=== PATIENT | female | born 1975 | race Caucasian/White ===

== ENCOUNTER → 2018-05-01 | Outpatient (CLI) | payer OTHER ==
[2015-06-08 15:21] VITALS: BP 139/83
[~2018-05-01] MED LIST: CELE400C PO; CHOL100013 PO; CHOL500016 PO; FENT1PAT21 TP; FERR325T14 PO; GABA600T7 PO; HYDR1TAB14 PO; HYDR200T5 PO; HYDR25CA75 PO; IBUP200T58 PO; LISI1TAB5 PO; MAGN400C PO; MELO15TA23 PO; MELO7.5T29 PO; MELO7.5T5 PO; NAPR-514 PO; OXYC10TA PO; OXYC1TAB15 PO; SERT100T PO; TIZA4TAB2 PO; WARF-78 PO; WARF1TAB69 PO; WARF7.5T48 PO; ZOLP5TAB PO
== END | disposition home or self-care (01) ==
LOC: LAB 12:16
PROVIDERS: ATTEND Orthopaedic Surgery Sports Medicine
DX: Z47.89 Encounter for other orthopedic aftercare (principal); Z96.643 Presence of artificial hip joint, bilateral
CPT/HCPCS: 36415; 85651; 86141

== ENCOUNTER → 2018-05-11 | Outpatient (CLI) | payer OTHER ==
[2015-06-08 15:21] VITALS: BP 139/83
[~2018-05-11] MED LIST changes: -MELO7.5T5 PO; +TIZA4TAB PO; -TIZA4TAB2 PO; -WARF1TAB69 PO
[2018-05-11 11:50] LABS: BILIRUBIN,URINE NEGATIVE (NEG); CLARITY,URINE CLEAR; COLOR,URINE YELLOW; NITRITE,URINE NEGATIVE (NEG); PROTEIN,URINE NEGATIVE (NEG-TRACE); UROBILINOGEN,URINE 0.2 mg/dL (0.2 mg/dL)
[2018-05-11 11:51] LABS: BASO % 0 % (0-3); EOS # 0.1 x10^3/uL (0.0-0.7); EOS % 1 % (0-3); HEMATOCRIT 31.3 % (36.0-47.0); HEMOGLOBIN 10.4 g/dL (12.0-15.5); LYMPH # 2.7 x10^3/uL (1.0-4.8); LYMPH % 36 % (24-48); MEAN CORPUSCULAR HEMOGLOBIN 27 pg (25-35); MEAN CORPUSCULAR HGB CONC 33 g/dL (31-37); MEAN CORPUSCULAR VOLUME 83 fL (79-100); MONO # 0.8 x10^3/uL (0.0-1.1); MONO % 11 % (0-9); NEUT # 3.9 x10^3uL (1.8-7.7); NEUT % 52 % (31-73); PLATELET COUNT 414 x10^3/uL (140-400); RED BLOOD COUNT 3.79 x10^6/uL (3.50-5.40); RED CELL DISTRIBUTION WIDTH 14.9 % (11.5-14.5); WHITE BLOOD COUNT 7.6 x10^3/uL (4.0-11.0)
[2018-05-11 12:00] LABS: PROTHROMBIN TIME PATIENT 12.9 SEC (11.7-14.0)
[2018-05-11 12:00] LABS: HYALINE CASTS, URINE MODERATE /HPF; SQUAMOUS EPITHELIAL CELL,UR FEW /LPF
[2018-05-11 12:01] LABS: BACTERIA,URINE FEW /HPF (0-FEW); RBC,URINE 0 /HPF (0-2)
[2018-05-11 12:05] LABS: ALBUMIN 3.3 g/dL (3.4-5.0); CALCIUM 8.7 mg/dL (8.5-10.1); CREATININE 0.7 mg/dL (0.6-1.0); GFR 92.2
--- NOTE | 2018-05-11 12:28 | EKG ---
[facility] [address] [place] [address] Test Date: 2018-05-11 Test Time: 11:51:06 Pat Name: TITA NEW Department: Room: Gender: F Community Leader: GINA Johnson : 1975 Requested By: CHAN KELSEY Order Number: [id number] Reading MD: Julian Voss Measurements Intervals [place] Rate: 81 P: 38 MN: 156 QRS: 9 QRSD: 88 T: 7 QT: 382 QTc: 444 Interpretive Statements SINUS RHYTHM MILD T WAVE INVERSION IN LEAD III Electronically Signed On 05-12-2018 18:33:10 MANAGER SOCIAL WORK by Julian Voss
--- NOTE | 2018-05-11 13:07 | RAD ---
Chest, 2 views, 05/11/2018: HISTORY: Preop evaluation for hip surgery The heart size and pulmonary vascularity are normal. No pulmonary infiltrate is seen. There is no evidence of pleural fluid. There are mild scattered spurs in the spine. IMPRESSION: No acute cardiopulmonary abnormality is detected. Electronically signed by: Soy Blancas MD (05/11/2018 1:02 PM) [facility]
== END | disposition home or self-care (01) ==
LOC: SURGPAT 10:15
PROVIDERS: ATTEND Orthopaedic Surgery Sports Medicine
DX: Z01.818 Encounter for other preprocedural examination (principal)
CPT/HCPCS: 36415; 71046; 80048; 81001; 82040; 85025; 85610; 85651; 85730; 87641; 93005

== ENCOUNTER 2018-05-25 06:16 | Inpatient (IN) | payer OTHER ==
[~2018-05-25] VITALS: Ht 165.1 cm; Wt 111.6 kg
[2018-05-25] VITALS (12 sets, daily range): BP systolic 118–150; BP diastolic 56–85
[~2018-05-25 06:16] MED LIST changes: +HYDROcodone/APAP 7.5/325MG 1 TAB TABLET PO PRN; +MELOXICAM 7.5 MG TABLET PO PRN; +MORPHINE SULFATE 5 MG, KETOROLAC 30MG VIAL 30 MG, ROPIVacaine 0.5% PF 60 ML, EPINEPHrin... INT ART ONE; +TRANEXAMIC ACID 1,000 MG in IV NS 50ML -- 1ST BAG INJ ONE
[2018-05-25] MEDS ORDERED: ONDANSETRON PF 4 MG/2 ML VIAL. IV PRN (07:00)
[2018-05-25] MEDS ORDERED: ceFAZolin 2GM PREMIX 2 GM/50 ML BAG IV ONE (07:00)
[2018-05-25] MEDS ORDERED: IV RINGERS,LACTATED 1000ML 1,000 ML IV SCH (07:00)
[2018-05-25] MEDS ORDERED: fentaNYL PF VIAL 100 MCG/2 ML VIAL IV PRN (07:00)
[2018-05-25] MEDS ORDERED: MORPHINE SULFATE 2 MG/ML VIAL. IV PRN (07:00)
[2018-05-25] MEDS ORDERED: LIDOCAINE 1% PF 2 ML VIAL. ID PRN (07:00)
[2018-05-25] MEDS ORDERED: PROCHLORPERAZINE 10 MG/2 ML VIAL. IV PRN (07:00)
[2018-05-25] MEDS ORDERED: ROCURONIUM 50 MG/5 ML VIAL. ONE (07:02)
[2018-05-25] MEDS ORDERED: FAMOTIDINE 20 MG/2 ML VIAL ONE (07:02)
[2018-05-25] MEDS ORDERED: ONDANSETRON PF 4 MG/2 ML VIAL. ONE (07:02)
[2018-05-25] MEDS ORDERED: DEXAMETHASONE SOD PHOS 20 MG/5 ML VIAL. ONE (07:02)
[2018-05-25] MEDS ORDERED: LIDOCAINE 2% PF 5 ML VIAL. ONE (07:02)
[2018-05-25] MEDS ORDERED: PROPOFOL 20 ML IV ONE (07:02)
[2018-05-25] MEDS ORDERED: MIDAZOLAM HCL/PF 2 MG/2 ML VIAL. ONE (07:03)
[2018-05-25] MEDS ORDERED: 0.9 % SODIUM CHLORIDE 20 ML VIAL. IJ ONE (07:07)
[2018-05-25] MEDS ORDERED: HYDROmorphone 2 MG/ML VIAL ONE (07:07)
[2018-05-25 07:26] LABS: U PREG PATIENT NEGATIVE (NEG)
[2018-05-25 07:31] LABS: PROTHROMBIN TIME PATIENT 13.1 SEC (11.7-14.0)
[2018-05-25] MEDS: IV NORMAL SALINE 1000ML BAG 1,000 ML IV SCH ×2 (07:51→13:33)
[2018-05-25] MEDS ORDERED: ZOLPIDEM 5 MG TABLET. PO PRN (08:00)
[2018-05-25] MEDS ORDERED: TRANEXAMIC ACID 1,000 MG in IV NS 50ML -- 2ND BAG INJ ONE (08:00)
[2018-05-25] MEDS ORDERED: oxyCODONE IR 5 MG TABLET PO PRN ×2 (08:00)
[2018-05-25] MEDS ORDERED: VANCOMYCIN 1 GM in IV DEXTROSE 5% 250 ML IV ONE (08:00)
[2018-05-25] MEDS ORDERED: NALOXONE 0.4 MG/ML VIAL. IV PRN (08:00)
[2018-05-25] MEDS ORDERED: CALCIUM CARBONATE 500 MG TAB.CHEW PO PRN (08:00)
[2018-05-25] MEDS ORDERED: 0.9 % SODIUM CHLORIDE 10 ML DISP.SYRIN. IV PRN (08:00)
[2018-05-25] MEDS ORDERED: METOCLOPRAMIDE HCL 10 MG/2 ML VIAL. IV PRN (08:00)
[2018-05-25] MEDS: FERROUS SULFATE 325 MG TABLET. PO SCH ×2 (08:00→17:48)
[2018-05-25] MEDS ORDERED: PROCHLORPERAZINE 5 MG TABLET. PO PRN (08:00)
[2018-05-25] MEDS ORDERED: diphenhydrAMINE 50 MG/ML VIAL IV PRN (08:00)
[2018-05-25] MEDS ORDERED: DEXTROSE 50% 25 GM / 50ML DISP.SYRIN. IV PRN (08:00)
[2018-05-25] MEDS ORDERED: TOBRAMYCIN POWDER 1.2 GM VIAL. ONE ×2 (08:03→12:10)
[2018-05-25] MEDS ORDERED: VANCOMYCIN 1 GM VIAL. ONE ×2 (08:03→12:10)
[2018-05-25] MEDS ORDERED: tiZANidine 4 MG TABLET. PO PRN (08:15)
[2018-05-25] MEDS ORDERED: VECURONIUM BOLUS 10 MG VIAL. IV ONE (08:30)
[2018-05-25] MEDS ORDERED: CHOLECALCIFEROL (VITAMIN D3) 1,000 UNIT TABLET PO PRN (09:00)
[2018-05-25] MEDS: SENNOSIDES/DOCUSATE 8.6/50MG TABLET. PO SCH (09:00)
[2018-05-25] MEDS: hydrOXYzine PAMOATE 25 MG CAPSULE PO SCH ×4 (09:00→20:41)
[2018-05-25] MEDS: MAGNESIUM OXIDE 400 MG TABLET PO SCH ×2 (09:00→20:41)
[2018-05-25] MEDS: MULTIVITAMIN with MINERAL TABLET. PO SCH (09:00)
[2018-05-25] MEDS: SERTRALINE 50 MG TABLET. PO SCH (09:00)
[2018-05-25] MEDS: LISINOPRIL 20 MG TABLET PO SCH (09:00)
[2018-05-25] MEDS: hydroCHLOROthiazide 12.5 MG CAPSULE PO SCH (09:00)
[2018-05-25] MEDS: GABAPENTIN 300 MG CAPSULE. PO SCH ×2 (09:00→20:42)
[2018-05-25] MEDS ORDERED: GLYCOPYRROLATE 1 MG/5 ML VIAL. ONE (09:22)
[2018-05-25] MEDS ORDERED: SEVOFLURANE > 120 MINUTES. IH ONE (09:22)
[2018-05-25] MEDS ORDERED: NEOSTIGMINE 10 MG/10 ML VIAL. ONE (09:23)
[2018-05-25] MEDS ORDERED: VANCOMYCIN 1GM IVPB FOR OMNI 250 ML IV ONE (10:15)
[2018-05-25] MEDS ORDERED: KETOROLAC 30 MG/ML INJ FOR OR. INJ ONE (10:55)
[2018-05-25] MEDS ORDERED: fentaNYL PF VIAL 100 MCG/2 ML VIAL ONE (10:55)
[2018-05-25] MEDS ORDERED: MORPHINE SULFATE 10 MG/ML VIAL. ONE (11:01)
[2018-05-25] MEDS: fentaNYL PF VIAL 100 MCG/2 ML VIAL IV PRN ×4 (11:13→11:39)
--- NOTE | 2018-05-25 11:25 | PDOC4 ---
Operative Note Operative Note Date of procedure: 05/25/2018 Surgeon: Manny Kelsey Asst.: Sudeep Gambino, ANTONINO Preoperative diagnosis: Left total hip periprosthetic infection Postoperative diagnosis: Same Procedure performed: #1 left total hip arthroplasty resection #2 irrigation and debridement with antibiotic spacer placement Anesthesia: Gen. Complications: None Blood loss: 500 mL Findings: Thickened fibrotic tissue around the hip capsule. No gross purulence. Grossly loose stem, acetabular component was well fixed Specimens: Multiple tissue samples from various sites were obtained, swabs were obtained as well. Components inserted: Interspace preformed antibiotic loaded spacer Reason for procedure: Patient is a very pleasant 42-year-old female who had undergone bilateral total hip arthroplasty with myself for bilateral hip avascular necrosis. She had Developed thigh pain starting several months ago that progressed. Inflammatory markers were both elevated, possibly due to infection versus her underlying rheumatoid arthritis diagnosis. Hip aspiration was obtained which showed greater than 65,000 white blood cells. No organism grew from this aspiration. Because of the overall clinical scenario, I had a discussion of the above procedure with her and her and they elected to proceed. Description of procedure: Patient was greeted in the preoperative holding area by myself for the correct extremity was verified and marked. She was taken back to the operative suite and her antibiotics were started after several tissue samples a been obtained. Once in the operating room, she was transferred gently supine to the operative room table and had successful induction of a general anesthetic. She was then laid in the lateral decubitus position with the left side up and secured to bed with our hip positioning devices. The left lower extremity and hip were prepped and draped in our usual sterile fashion including an Ioban Hope. I surinder a line tracing her prior hip incision. We conducted our standard preoperative timeout. Skin was incised with a scalpel and I dissected subcutaneous tissue and cauterized bleeders with electrocautery. We placed self-retaining retractors to help facilitate exposure and I continue my dissection until I encountered the fascia. I used a Cordova elevator to sweep aside adherent subcutaneous tissue for later identification and repair. Fascia was incised in line of the skin incision and the gluteus abimbola was bluntly split in line with its fibers. We placed 2 Charnley retractors. I then encountered some thickened fibrotic tissue in the bursal space and excised this with electrocautery and Rominger. I sent some of this off for specimen. There was no gross purulence encountered. I then used a 18- gauge spinal needle and syringe to withdraw hip fluid which was cloudy in appearance and I sent this off, all the samples were sent for aerobic and anaerobic cultures, fungal and AFB cultures as well. I then opened the hip capsule and taking ends of this for later repair. I then removed the head and some scar tissue possible to the stem. I was able to deliver the stem quite easily. I then began using a combination of reverse cutting osteotomes, angled curettes to debride the canal followed by reamers. She had a pedestal distally and I did bring in C-arm and used a drill to guide my drill. I used a flexible reamer then with an end-cutting ability followed by further reamers. After satisfied with my debridement of the canal I irrigated out with about 3000 L of sterile fluid. I then directed my attention to the acetabulum. I completed my acetabular exposure and performed a thorough and complete synovectomy sending samples off for specimen as well. After identifying the notch in the acetabular component, I used the extraction device to remove the polyethylene followed by the screw. After delivering the screw, which was well fixed, I then used the circular acetabular osteotomes from Emir to deliver the cup from the field. It took a bit of work, it was well fixed. I then reamed the acetabulum and sent tissue off for specimen as well. I then thoroughly irrigated the operative field again at this point with another 3000 mL of sterile fluid. After this I inspected the operative field and the femoral canal to make sure I removed all of the fibrous tissue from the canal and synovial layer. After this, I placed my spacer to size the larger spacer was too broad proximally and would not fit therefore I had to downsize. We then mixed in 2 g of vancomycin and tobramycin into the cement and I cemented in the spacer in place. The hip was reduced. I took care to remove some excess cement but left what I thought was a good amount behind to elute antibiotics. After the hip was reduced, irrigated out the operative field again. Capsule was closed with simple interrupted #1 PDS. I then injected my periarticular mixture. After this, fascia was closed with running #2 Quill. Inverted interrupted 2-0 PDS was used in a multilayered fashion for subcutaneous tissues tissue and carlos for skin. The hip was cleansed and dried and our aaliyah wound VAC was applied. All counts correct 2 prior to wound closure. At the conclusion of the surgery, patient was laid supine and transferred supine to the hospital bed and taken to PACU stable and extubated condition. Postoperative plan is to admit her to the joint center. She will remain be maintained on IV antibiotics. Infectious disease has been consult and I spoke with Dr. Connor regarding her this morning. She can partial weight-bear, using a walker. MANNY KELSEY II, MD May 25, 2018 11:25
--- NOTE | 2018-05-25 11:31 | RAD ---
Examination: Frontal view of the pelvis HISTORY: History of postop right hip arthroplasty COMPARISON: None available. FINDINGS: Right total hip arthroplasty changes are identified. Left femoral prosthesis appears to be in place. Postoperative air identified about the left hip. A tubing projects over the left iliac region. IMPRESSION: Postsurgical changes as described above. Electronically signed by: Glen Blackwood MD (05/25/2018 11:28 AM) [id number]
[2018-05-25] MEDS: MORPHINE SULFATE/PF 30 ML IV PRN ×4 (11:50→22:34)
[2018-05-25] MEDS: ONDANSETRON ODT 4 MG TAB.RAPDIS. PO SCH ×2 (12:00→15:56)
[2018-05-25] MEDS: ONDANSETRON PF 4 MG/2 ML VIAL. IV SCH ×2 (12:00→15:56)
[2018-05-25] MEDS: HYDROmorphone 2 MG/ML VIAL IV PRN ×3 (12:14→12:44)
--- NOTE | 2018-05-25 12:33 | PDOC ---
Infectious Disease Note Vital Sign Vital Signs Vital Signs Date Time Temp Pulse Resp B/P (MAP) Pulse Ox O2 Delivery O2 Flow Rate FiO2 05/25/18 12:14 12 96 Room Air 05/25/18 11:20 8.0 05/25/18 11:06 99.6 89 152/77 99.6 Labs Lab Laboratory Tests Test 05/25/18 06:45 05/25/18 06:55 Urine Test Negative (NEG) Prothrombin Time 13.1 SEC (11.7-14.0) Prothromb Time International Ratio 1.0 (0.8-1.1) Activated Partial Thromboplast Time 30 SEC (24-38) Objective Assessment Left SHRUTHI infection s/p explantation RA HTN Obesity Plan Plan of Care vanc and zosyn check cultures supportive care d/w MAUREEN Adams MD May 25, 2018 12:33
--- NOTE | 2018-05-25 14:08 | NUR ---
received from recovery; she has a COIN MACHINE SUPERVISOR with morphine. she is rating her pain 6.5. reinforced teaching regarding the usage of residential support worker pump; verbalized understanding of these instructions. incentive spirometer is up to 2000. she has good sensation, motion and pulses bilateral lower extremities.strength in left foot is less than right foot. at bedside. she is on room air. she has Josh hose on right leg and medigrip on left with holden SCD's. tolerating liquids without complaints of nausea.
[2018-05-25] MEDS ORDERED: VANCOMYCIN 2 GM in IV NORMAL SALINE 500ML BAG 500 ML IV ONE (14:30)
[2018-05-25] MEDS: VANCOMYCIN PER PHARMACY MC PRN ×2 (14:35→16:18)
[2018-05-25] MEDS: PIPERACILLIN/TAZOBACTAM 3.375 GM in IV NORMAL SALINE 50ML 50 ML IV SCH ×3 (14:48→23:56)
[2018-05-25] MEDS ORDERED: WARFARIN 7.5 MG TABLET. PO ONE (16:00)
[2018-05-25] MEDS ORDERED: LIDOCAINE WITH 8.4% SOD BICARB 3 ML DISP.SYRIN. ONE (16:18)
--- NOTE | 2018-05-25 16:20 | NUR ---
Pharmacy Vancomycin Dosing Note S:Consulted to monitor and dose vancomycin started 05/25/18. O:TITA NEW is a 42 year old F with Cellulitis . Height: 5 feet, 5 inches Weight: 111.465468 kg Friend Body Weight: 57.00 Adjusted Body Weight: 78.60 Dosing Weight: Actual Other Antibiotics: ZOSYN LABS: Last BUN: Last Creatinine: 0.7 Creatinine Clearance: 131 mL/min Last WBC: Last Procalcitonin: Tmax (past 24 hours): 100.5 Microbiology: I/O: Drug Levels: Last level: on at Last dose given 05/25/18 at 1500 Vancomycin Dosing: Loading Dose: 2000 mg x1 Dosing Weight: Actual Target Trough: 10-20 A: Based on: WEIGHT AND RENAL FUNCTION, 2GM VANCOMYCIN IVBOLUS GIVEN, P: 1. Begin Vancomycin 2000 mg IV q12h IN AM 2. Follow up Trough level on 05/27/18 at 0130 3. Pharmacy will continue to monitor, follow and adjust therapy as needed. OLIVIA GIL [facility], 05/25/18 [id number]
[2018-05-25] MEDS ORDERED: LIDOCAINE WITH 8.4% SOD BICARB 3 ML DISP.SYRIN. INJ ONE (17:00)
--- NOTE | 2018-05-25 18:13 | NUR ---
returned from radiology. double lumen PICC in her right inner upper arm. iv fluids infusing thru purple port. saline lock in left hand was discontinued per request. ambulated to the bathroom; voided 350 cc. ready for supper . at bedside. pain is getting better; she is rating her pain a "5" at this time.
[2018-05-25 18:28] LABS: BASO % 0 % (0-3); EOS % 0 % (0-3); HEMATOCRIT 27.2 % (36.0-47.0); HEMOGLOBIN 8.8 g/dL (12.0-15.5); LYMPH % 10 % (24-48); MEAN CORPUSCULAR HEMOGLOBIN 26 pg (25-35); MEAN CORPUSCULAR HGB CONC 32 g/dL (31-37); MEAN CORPUSCULAR VOLUME 82 fL (79-100); MONO # 0.4 x10^3/uL (0.0-1.1); MONO % 4 % (0-9); NEUT # 8.7 x10^3uL (1.8-7.7); NEUT % 86 % (31-73); PLATELET COUNT 375 x10^3/uL (140-400); RED BLOOD COUNT 3.32 x10^6/uL (3.50-5.40); RED CELL DISTRIBUTION WIDTH 15.3 % (11.5-14.5); WHITE BLOOD COUNT 10.1 x10^3/uL (4.0-11.0)
[2018-05-25 20:20] LABS: % BANDS 7 % (0-9); % LYMPHS 14 % (24-48); % MONOS 3 % (0-10); % SEGS 76 % (35-66)
[2018-05-25 20:21] LABS: PLT ESTIMATE ADEQUATE (ADEQUATE)
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
[2018-05-26] VITALS (8 sets, daily range): BP systolic 105–132; BP diastolic 41–93
[2018-05-26] MEDS: VANCOMYCIN 1.75 GM in IV NORMAL SALINE 500ML BAG 500 ML IV SCH ×2 (02:06→14:54)
[2018-05-26] MEDS: PIPERACILLIN/TAZOBACTAM 3.375 GM in IV NORMAL SALINE 50ML 50 ML IV SCH ×3 (05:44→17:13)
[2018-05-26] MEDS: ONDANSETRON PF 4 MG/2 ML VIAL. IV SCH ×2 (06:00)
[2018-05-26] MEDS ORDERED: MAGNESIUM HYDROXIDE 2,400 MG/30 ML ORAL.SUSP. PO PRN (06:00)
[2018-05-26] MEDS: ONDANSETRON ODT 4 MG TAB.RAPDIS. PO SCH ×2 (06:00)
[2018-05-26] MEDS: MORPHINE SULFATE/PF 30 ML IV PRN ×4 (06:10→19:11)
[2018-05-26 06:12] LABS: HEMOGLOBIN 7.1 g/dL (12.0-15.5)
[2018-05-26 06:25] LABS: PROTHROMBIN TIME PATIENT 15.3 SEC (11.7-14.0)
[2018-05-26] MEDS: IV NORMAL SALINE 1000ML BAG 1,000 ML IV SCH ×3 (07:46→15:02)
--- NOTE | 2018-05-26 08:27 | PDOC ---
ORTHO PROGRESS NOTES Subjective She is feeling a lot of discomfort at her left hip. It is a little bit better since yesterday. She has been using WET SUIT GLUER. She has been transferring well. No abdominal complaints. Vitals Vital Signs Date Time Temp Pulse Resp B/P (MAP) Pulse Ox O2 Delivery O2 Flow Rate FiO2 05/26/18 06:10 20 94 Room Air 05/26/18 05:52 98.8 80 122/63 (82) 98.8 05/25/18 11:25 8 Labs Laboratory Tests Test 05/25/18 06:45 05/25/18 06:55 05/25/18 17:53 05/26/18 05:53 Urine Test Negative (NEG) Prothrombin Time 13.1 SEC (11.7-14.0) 15.3 SEC (11.7-14.0) Prothromb Time International Ratio 1.0 (0.8-1.1) 1.2 (0.8-1.1) Activated Partial Thromboplast Time 30 SEC (24-38) White Blood Count 10.1 x10^3/uL (4.0-11.0) Red Blood Count 3.32 x10^6/uL (3.50-5.40) Hemoglobin 8.8 g/dL (12.0-15.5) 7.1 g/dL (12.0-15.5) Hematocrit 27.2 % (36.0-47.0) 22.0 % (36.0-47.0) Mean Corpuscular Volume 82 fL (79-100) Mean Corpuscular Hemoglobin 26 pg (25-35) Mean Corpuscular Hemoglobin Concent 32 g/dL (31-37) 32 g/dL (31-37) Red Cell Distribution Width 15.3 % (11.5-14.5) Platelet Count 375 x10^3/uL (140-400) Neutrophils (%) (Auto) 86 % (31-73) Lymphocytes (%) (Auto) 10 % (24-48) Monocytes (%) (Auto) 4 % (0-9) Eosinophils (%) (Auto) 0 % (0-3) Basophils (%) (Auto) 0 % (0-3) Neutrophils # (Auto) 8.7 x10^3uL (1.8-7.7) Lymphocytes # (Auto) 1.0 x10^3/uL (1.0-4.8) Monocytes # (Auto) 0.4 x10^3/uL (0.0-1.1) Eosinophils # (Auto) 0.0 x10^3/uL (0.0-0.7) Basophils # (Auto) 0.0 x10^3/uL (0.0-0.2) Segmented Neutrophils % 76 % (35-66) Band Neutrophils % 7 % (0-9) Lymphocytes % 14 % (24-48) Monocytes % 3 % (0-10) Platelet Estimate Adequate (ADEQUATE) Laboratory Tests Test 05/25/18 17:53 05/26/18 05:53 White Blood Count 10.1 x10^3/uL (4.0-11.0) Red Blood Count 3.32 x10^6/uL (3.50-5.40) Hemoglobin 8.8 g/dL (12.0-15.5) 7.1 g/dL (12.0-15.5) Hematocrit 27.2 % (36.0-47.0) 22.0 % (36.0-47.0) Mean Corpuscular Volume 82 fL (79-100) Mean Corpuscular Hemoglobin 26 pg (25-35) Mean Corpuscular Hemoglobin Concent 32 g/dL (31-37) 32 g/dL (31-37) Red Cell Distribution Width 15.3 % (11.5-14.5) Platelet Count 375 x10^3/uL (140-400) Neutrophils (%) (Auto) 86 % (31-73) Lymphocytes (%) (Auto) 10 % (24-48) Monocytes (%) (Auto) 4 % (0-9) Eosinophils (%) (Auto) 0 % (0-3) Basophils (%) (Auto) 0 % (0-3) Neutrophils # (Auto) 8.7 x10^3uL (1.8-7.7) Lymphocytes # (Auto) 1.0 x10^3/uL (1.0-4.8) Monocytes # (Auto) 0.4 x10^3/uL (0.0-1.1) Eosinophils # (Auto) 0.0 x10^3/uL (0.0-0.7) Basophils # (Auto) 0.0 x10^3/uL (0.0-0.2) Segmented Neutrophils % 76 % (35-66) Band Neutrophils % 7 % (0-9) Lymphocytes % 14 % (24-48) Monocytes % 3 % (0-10) Platelet Estimate Adequate (ADEQUATE) Prothrombin Time 15.3 SEC (11.7-14.0) Prothromb Time International Ratio 1.2 (0.8-1.1) Notes She is awake and alert and in a chair. Normal motor and sensation are present in her left lower extremity. Assessment and Plan We will await culture reports. I appreciate infectious disease assistance with her care. CHAN EKLSEY II, MD May 26, 2018 08:27
[2018-05-26] MEDS: hydrOXYzine PAMOATE 25 MG CAPSULE PO SCH ×4 (08:59→21:02)
[2018-05-26] MEDS: MULTIVITAMIN with MINERAL TABLET. PO SCH (08:59)
[2018-05-26] MEDS: GABAPENTIN 300 MG CAPSULE. PO SCH ×2 (09:00→21:02)
[2018-05-26] MEDS: SERTRALINE 50 MG TABLET. PO SCH (09:00)
[2018-05-26] MEDS: SENNOSIDES/DOCUSATE 8.6/50MG TABLET. PO SCH (09:00)
[2018-05-26] MEDS: hydroCHLOROthiazide 12.5 MG CAPSULE PO SCH (09:00)
[2018-05-26] MEDS: LISINOPRIL 20 MG TABLET PO SCH (09:00)
[2018-05-26] MEDS: FERROUS SULFATE 325 MG TABLET. PO SCH ×2 (09:00→17:13)
[2018-05-26] MEDS: MAGNESIUM OXIDE 400 MG TABLET PO SCH ×2 (09:00→21:02)
[2018-05-26] MEDS: ACETAMINOPHEN 500 MG TABLET PO SCH ×3 (09:06→21:02)
--- NOTE | 2018-05-26 10:10 | PDOC ---
Infectious Disease Note Subjective Subjective pt is feeling better ROS ROS no n/v/d/sob/fever Vital Sign Vital Signs Vital Signs Date Time Temp Pulse Resp B/P (MAP) Pulse Ox O2 Delivery O2 Flow Rate FiO2 05/26/18 10:04 Room Air 05/26/18 09:00 79 125/60 05/26/18 07:00 97.9 18 95 97.9 05/25/18 11:25 8 Physical Exam PHYSICAL EXAM GENERAL: Alert, oriented female, not in distress. VITAL SIGNS: Stable HEENT: NAD. NECK: Supple, no JVP, no lymphadenopathy. LUNGS: Clear. HEART: S1, S2 regular. ABDOMEN: Benign. EXTREMITIES: No edema, cyanosis. SKIN: Unremarkable. Post-surgical dressing not opened. NEUROLOGIC: The patient is neurologically alert, awake and appropriate. No focal neurologic deficit. Labs Lab Laboratory Tests Test 05/25/18 17:53 05/26/18 05:53 White Blood Count 10.1 x10^3/uL (4.0-11.0) Red Blood Count 3.32 x10^6/uL (3.50-5.40) Hemoglobin 8.8 g/dL (12.0-15.5) 7.1 g/dL (12.0-15.5) Hematocrit 27.2 % (36.0-47.0) 22.0 % (36.0-47.0) Mean Corpuscular Volume 82 fL (79-100) Mean Corpuscular Hemoglobin 26 pg (25-35) Mean Corpuscular Hemoglobin Concent 32 g/dL (31-37) 32 g/dL (31-37) Red Cell Distribution Width 15.3 % (11.5-14.5) Platelet Count 375 x10^3/uL (140-400) Neutrophils (%) (Auto) 86 % (31-73) Lymphocytes (%) (Auto) 10 % (24-48) Monocytes (%) (Auto) 4 % (0-9) Eosinophils (%) (Auto) 0 % (0-3) Basophils (%) (Auto) 0 % (0-3) Neutrophils # (Auto) 8.7 x10^3uL (1.8-7.7) Lymphocytes # (Auto) 1.0 x10^3/uL (1.0-4.8) Monocytes # (Auto) 0.4 x10^3/uL (0.0-1.1) Eosinophils # (Auto) 0.0 x10^3/uL (0.0-0.7) Basophils # (Auto) 0.0 x10^3/uL (0.0-0.2) Segmented Neutrophils % 76 % (35-66) Band Neutrophils % 7 % (0-9) Lymphocytes % 14 % (24-48) Monocytes % 3 % (0-10) Platelet Estimate Adequate (ADEQUATE) Prothrombin Time 15.3 SEC (11.7-14.0) Prothromb Time International Ratio 1.2 (0.8-1.1) Objective Assessment Left SHRUTHI infection s/p explantation on 05/25/18 RA HTN Obesity Plan Plan of Care vanc and zosyn check cultures supportive care d/w in detail, process explained, side effects of picc and antibiotics explained MAUREEN MO MD May 26, 2018 10:10
[2018-05-26] MEDS ORDERED: ONDANSETRON ODT 4 MG TAB.RAPDIS. PO PRN (12:00)
[2018-05-26] MEDS ORDERED: ONDANSETRON PF 4 MG/2 ML VIAL. IV PRN (12:00)
--- NOTE | 2018-05-26 13:37 | RAD ---
Exam: Fluoroscopic and ultrasound guided right percutaneous inserted central venous catheter placement 05/26/2018 1:33 PM .Indication: Long-term IV antibiotics. Technique: Informed oral and written consent were obtained. The right upper extremity was prepped and draped using sterile barrier technique. All elements of maximal sterile barrier technique including the use of a cap, mask, sterile gown, sterile gloves, large sterile sheet, appropriate hand hygiene, and 2% chlorhexidine for cutaneous antisepsis (or acceptable alternative antiseptic per current guidelines) were followed for this procedure.. Real-time ultrasound demonstrated a patent right basilic vein. The right upper extremity was prepped and draped in usual sterile fashion. 1% lidocaine used for local anesthesia. Using real-time ultrasound guidance the access needle percutaneously punctured the selected vein. Reference ultrasound images were saved to the medical record. A guidewire was advanced through the needle to the cavoatrial junction, and a peel-away sheath placed. The catheter was cut to length and inserted through the peel-away sheath such that its tip is at the cavoatrial junction. The wire and sheath were removed, and the catheter secured in place, and a sterile dressing was applied. Catheter was found to flush and aspirate normally. No immediate complications are identified. FLUORO TIME: Fluoro Time: 1.3 DOSE AREA PRODUCT: 2.61 Gycm2 Impression: Ultrasound and fluoroscopically guided placement of a right upper extremity PICC line.
--- NOTE | 2018-05-26 15:37 | NUR ---
Pharmacy Warfarin Dosing Note S:Pharmacy consulted to assist with anticoagulation therapy started 05/25/18 with target INR: 1.6 - 2.5 O:TITA NEW is a 42 year old F with SHRUTHI LABS: Last INR: 1.2 Last HGB: 7.1 Last HCT: Last PLT: 375 Last dose of 7.5 mg given on 05/25/18 at 1700 Previous Regimen: Vitamin K given: Drug Interaction Changes: Ongoing Drug Interactions: A:INR of 1.2 is below desired range. Target range for this patient is: 1.6 - 2.5 P: Warfarin dose: 5 mg Today at 1600 Bridge Therapy: None Next INR due IN AM Pharmacy anticoagulation service will continue to follow. OLIVIA GIL [facility], 05/26/18 [id number]
[2018-05-26] MEDS ORDERED: BISACODYL 10 MG SUPP.RECT. PR PRN (16:00)
[2018-05-26] MEDS ORDERED: WARFARIN 5 MG TABLET. PO ONE (16:00)
[2018-05-27] MEDS: PIPERACILLIN/TAZOBACTAM 3.375 GM in IV NORMAL SALINE 50ML 50 ML IV SCH ×4 (00:02→17:42)
--- NOTE | 2018-05-27 01:55 | NUR ---
This RN attempted to draw blood from Pt's MAVIS DL PICC, Flushed double lumens with no issue, but was not able to get blood return despite manipulating the arm and head. Infusion re-started at this time. RN contacted Lab to advise of a peripheral lab draw. Lab tubes left in patient's room. Advised primary nurse MIN Mathias of no blood draw at this time.
[2018-05-27] MEDS: VANCOMYCIN 1.75 GM in IV NORMAL SALINE 500ML BAG 500 ML IV SCH (01:59)
[2018-05-27 02:10] LABS: HEMATOCRIT 21.9 % (36.0-47.0); HEMOGLOBIN 7.1 g/dL (12.0-15.5)
[2018-05-27 02:26] LABS: PROTHROMBIN TIME PATIENT 16.1 SEC (11.7-14.0)
[2018-05-27] MEDS: ACETAMINOPHEN 500 MG TABLET PO SCH ×4 (03:13→20:15)
[2018-05-27 03:43] VITALS: BP 99/33
[2018-05-27 04:03] LABS: VANC TR 12.6 mcg/mL (10.0-20.0)
[2018-05-27] MEDS: VANCOMYCIN PER PHARMACY MC PRN ×2 (04:39→04:41)
--- NOTE | 2018-05-27 04:41 | NUR ---
Pharmacy Vancomycin Dosing Note S: Consulted to monitor and dose vancomycin started 05/25/18. O: TITA NEW is a 42 year old F with Cellulitis POST HIP INFECTION . Other Antibiotics: ZOSYN LABS: Last BUN: Last Creatinine: 0.7 Creatinine Clearance: 131 mL/min Last WBC: 10.1 Last Platelets: 375 Tmax (past 24 hours): 100.5 Microbiology: I/O: Drug Levels: Last Trough level: 12.6 on 05/27/18 at 0155 Last dose given 05/26/18 at 1500 Vancomycin Dosing: Dosing Weight: Actual Target Trough: 10-20 A: Based on: Trough, Actual Wt and CrCl P: 1. 05/27/17 Continue Vancomycin 2000 mg IV q12h 2. Follow up Trough level in 5 to 7 days as needed 3. Pharmacy will continue to monitor, follow and adjust therapy as needed. TEENA BARAJAS RPH, 05/27/18 0441 Signed: 05/27/18 at 0442 by TEENA BARAJAS RPH PHA
[2018-05-27 07:00] VITALS: BP 122/64
[2018-05-27] MEDS: IV NORMAL SALINE 1000ML BAG 1,000 ML IV SCH (07:51)
[2018-05-27] MEDS: FERROUS SULFATE 325 MG TABLET. PO SCH ×2 (08:40→17:41)
[2018-05-27] MEDS: MAGNESIUM OXIDE 400 MG TABLET PO SCH ×2 (08:42→20:14)
[2018-05-27] MEDS: GABAPENTIN 300 MG CAPSULE. PO SCH ×2 (08:42→20:16)
[2018-05-27] MEDS: hydrOXYzine PAMOATE 25 MG CAPSULE PO SCH ×4 (08:44→20:15)
[2018-05-27] MEDS: MULTIVITAMIN with MINERAL TABLET. PO SCH (08:44)
[2018-05-27] MEDS: MORPHINE SULFATE/PF 30 ML IV PRN (08:48)
[2018-05-27] MEDS: SENNOSIDES/DOCUSATE 8.6/50MG TABLET. PO SCH (09:00)
--- NOTE | 2018-05-27 09:12 | PDOC ---
Infectious Disease Note Subjective Subjective pt is feeling better ROS ROS no n/v/d/sob/fever Vital Sign Vital Signs Vital Signs Date Time Temp Pulse Resp B/P (MAP) Pulse Ox O2 Delivery O2 Flow Rate FiO2 05/27/18 08:48 Room Air 05/27/18 07:00 98.4 76 18 122/64 (83) 96 98.4 Physical Exam PHYSICAL EXAM GENERAL: Alert, oriented female, not in distress. VITAL SIGNS: Stable HEENT: NAD. NECK: Supple, no JVP, no lymphadenopathy. LUNGS: Clear. HEART: S1, S2 regular. ABDOMEN: Benign. EXTREMITIES: No edema, cyanosis. SKIN: Unremarkable. Post-surgical dressing not opened. NEUROLOGIC: The patient is neurologically alert, awake and appropriate. No focal neurologic deficit. Labs Lab Laboratory Tests Test 05/27/18 01:55 Hemoglobin 7.1 g/dL (12.0-15.5) Hematocrit 21.9 % (36.0-47.0) Mean Corpuscular Hemoglobin Concent 32 g/dL (31-37) Prothrombin Time 16.1 SEC (11.7-14.0) Prothromb Time International Ratio 1.3 (0.8-1.1) Vancomycin Level Trough 12.6 mcg/mL (10.0-20.0) Vancomycin Last Dose Date Vancomycin Last Dose Time Micro all cultures are neg so far Objective Assessment Left SHRUTHI infection s/p explantation on 05/25/18 RA HTN Obesity Plan Plan of Care dapto and zosyn check cultures supportive care d/w in detail, process explained, side effects of picc and antibiotics explained in detail f/u with me in 2 wks wkly cbc, bun/cr, cpk, sed rate fax to [phone] MAUREEN MO MD May 27, 2018 09:11
[2018-05-27 09:32] LABS: ALBUMIN 2.4 g/dL (3.4-5.0); ALBUMIN/GLOBULIN RATIO 0.8 (1.0-1.7); CALCIUM 7.7 mg/dL (8.5-10.1); CREATININE 0.8 mg/dL (0.6-1.0); POTASSIUM 3.5 mmol/L (3.5-5.1); TOTAL BILIRUBIN 0.1 mg/dL (0.2-1.0); TOTAL PROTEIN 5.6 g/dL (6.4-8.2)
[2018-05-27] MEDS: hydroCHLOROthiazide 12.5 MG CAPSULE PO SCH (10:39)
[2018-05-27] MEDS: LISINOPRIL 20 MG TABLET PO SCH (10:39)
[2018-05-27] MEDS: SERTRALINE 50 MG TABLET. PO SCH (10:39)
[2018-05-27] MEDS: DAPTOmycin (GENERIC) IVPB 670 MG in IV NORMAL SALINE 50ML 50 ML IV SCH (10:40)
[2018-05-27 11:00] VITALS: BP 101/42
--- NOTE | 2018-05-27 11:18 | NUR ---
SW following, discussed with RN. Pt is still using a ADAPTIVE PHYSICAL EDUCATOR. Per Dr. Connor, waiting on cultures to determine abx. Possibility of IV abx. ANDREINA will continue to follow.
[2018-05-27] MEDS: MORPHINE SULFATE 4 MG/ML VIAL. IV PRN (12:00)
--- NOTE | 2018-05-27 12:00 | NUR ---
This nurse discontinued the DOCUMENTATION SUPERVISOR for this patient, per verbal order from Dr. Gonzalez. Administered IV 2 mg MS and Angela 60mg PO, and Zosyn, system down, was able to administer at the nurses station. This nurse will continue to monitor.
[2018-05-27 15:00] VITALS: BP 120/62
--- NOTE | 2018-05-27 16:26 | NUR ---
Pharmacy Warfarin Dosing Note S:Pharmacy consulted to assist with anticoagulation therapy started 05/25/18 with target INR: 1.6 - 2.5 O:TITA NEW is a 42 year old F with SHRUTHI LABS: Last INR: 1.3 Last HGB: 7.1 Last HCT: 21.9 Last PLT: 375 Last dose of 7.5 mg given on 05/25/18 at 1700 Previous Regimen: Vitamin K given: Drug Interaction Changes: Ongoing Drug Interactions: A:INR of 1.3 is below desired range. Target range for this patient is: 1.6 - 2.5 P: Warfarin dose: 5 mg Today at 1630. Bridge Therapy: None Next INR due tomorrow. Pharmacy anticoagulation service will continue to follow. Farhan Coburn [facility], 05/27/18 [id number]
[2018-05-27] MEDS ORDERED: WARFARIN 5 MG TABLET. PO ONE (16:30)
[2018-05-27] MEDS ORDERED: ALTEPLASE 1MG SYRINGE. INT CAT ONE (18:45)
[2018-05-27 19:00] VITALS: BP 144/80
[2018-05-27] MEDS: LACTOBACILLUS RHAMNOSUS GG 1 CAPSULE. PO SCH (20:16)
[2018-05-27 23:00] VITALS: BP 129/79
[2018-05-28] VITALS (10 sets, daily range): BP systolic 104–143; BP diastolic 54–86
[2018-05-28] MEDS: PIPERACILLIN/TAZOBACTAM 3.375 GM in IV NORMAL SALINE 50ML 50 ML IV SCH ×3 (00:16→13:19)
[2018-05-28] MEDS: ACETAMINOPHEN 500 MG TABLET PO SCH ×3 (03:09→16:01)
[2018-05-28 04:50] LABS: HEMATOCRIT 21.2 % (36.0-47.0)
[2018-05-28 04:58] LABS: PROTHROMBIN TIME PATIENT 26.5 SEC (11.7-14.0)
[2018-05-28 04:59] LABS: HEMOGLOBIN 6.8 g/dL (12.0-15.5)
--- NOTE | 2018-05-28 05:11 | NUR ---
Notified by Zoraida Nguyen in lab of critical hemoglobin result of 6.8, called and spoke with Agata at [address] Gonzalez's office/answering service and was informed that Dr. Estrada was the economic developer Doctor and would be notified. Will continue to monitor the patient.
[2018-05-28 05:12] LABS: CREATININE 0.7 mg/dL (0.6-1.0); GFR 92.2
--- NOTE | 2018-05-28 05:56 | NUR ---
Sent second page out to Dr. Estrada answering service at [phone]. Dr. Estrada returned call at [phone] and discussed current hemoglobin 6.8. Patient is asymptomatic and upon observation showing no signs of distress or active bleeding. Patient did mention she failed to follow request to take iron supplement before procedure. Dr. Estrada instructed this RN to allow Dr. Gonzalez to follow up with patient today and make decision in regards to critical hemoglobin. Will continue to monitor patient.
[2018-05-28] MEDS ORDERED: ALTEPLASE 1MG SYRINGE. INT CAT ONE (07:30)
[2018-05-28] MEDS: IV NORMAL SALINE 1000ML BAG 1,000 ML IV SCH ×2 (07:46→07:51)
--- NOTE | 2018-05-28 07:59 | DISCH ---
DISCHARGE WITH HOME HEALTH DISCHARGE INFORMATION: Discharge Date: May 28, 2018 Final Diagnosis: L SHRUTHI infection Condition on Discharge: Stable CODE STATUS: Code Status: Full HOME HEALTH: Face to Face: I certify this patient is under my care and that I, or a nurse practitioner or physician's property management assistant working with me, had a face to face encounter that meets the physician face to face encounter requirements with this patient on []. Medical Complications: S/P Joint Replacement Alf For: Admin/Educate Injections, IV Infusion Therapy Physical Therapy For: Evalulation/Treatment Occupational Therapy For: Evaluation/Treatment POST DISCHARGE ORDERS: Activity Instructions for Disc: Activity as tolerated, Other, see below (PWB) Weight Bearing Status after Di: Full weight bearing, As tolerated Bathing Instructions: Shower-keep dressing dry, No Tub Bath until see Wound/Incision Care: Ice to area for comfort, Keep wound/cast CDI, Keep wound elevated, Do not change dressing FOLLOW-UP: Follow up with: Carlos in 2 wks Follow Up With: Nikolas in 2 wks TREATMENT/EQUIPMENT ORDERS: Adaptive Equipment Issued: None CERTIFICATION STATEMENT: Certification Statement: Certification Statement: Based on the above finding, I certify that this patient is confined to the home and needs intermittent intermediate care, physical therapy and/or speech therapy, or continues to need occupational therapy.~ This patient is under my care, and I have initiated the establishment of the plan of care.~ This patient will be followed by myself or a community physician who will periodically review the plan of care. Home Meds Reported Medications Cholecalciferol (Vitamin D3) (VITAMIN D) 1,000 Unit Capsule, 1000 UNIT PO TID PRN for SUPP, CAP 05/11/18 Cholecalciferol (Vitamin D3) (VITAMIN D3) 5,000 Unit Tablet, 23079 UNIT PO WEEKLY for SUPP, TAB 05/11/18 Magnesium Oxide (MAGNESIUM) 400 Mg Capsule, 400 MG PO BID for SUPP, CAP 05/11/18 Hydroxyzine Pamoate (HYDROXYZINE PAMOATE) 25 Mg Capsule, 25 MG PO QID for SLEEP , CAP 05/11/18 Tizanidine Hcl (TIZANIDINE HCL) 4 Mg Tablet, 4 MG PO TID PRN for MUSCLE SPASMS, TAB 05/11/18 Meloxicam (MELOXICAM) 7.5 Mg Tablet, 7.5 MG PO DAILY for PAIN, TAB 05/11/18 Fentanyl (FENTANYL 100mcg/hr) 1 Each Patch.td72, 1 PATCH TP Q3DAYS for PAIN, # 10 PATCH 05/11/18 Hydroxychloroquine Sulfate (HYDROXYCHLOROQUINE SULFATE) 200 Mg Tablet, 200 MG PO DAILY for ARTHRITIS, TAB 05/11/18 Gabapentin (GABAPENTIN) 600 Mg Tablet, 600 MG PO BID for NEUROGENIC PAIN, TAB 05/11/18 Sertraline Hcl (ZOLOFT) 100 Mg Tablet, 100 MG PO DAILY for ANTI-DEPRESSANT, TAB 0 Refills 05/11/18 Oxycodone Hcl (OXYCODONE HCL IMMED.RELEASE) 10 Mg Tablet, 45 MG PO QID PRN for PAIN, TAB 0 Refills 05/29/15 Zolpidem Tartrate (AMBIEN) 5 Mg Tablet, 5 MG PO PRN QHS PRN for INSOMNIA, TAB 0 Refills May take as needed for insomnia. 01/13/15 Lisinopril/Hydrochlorothiazide (LISINOPRIL-HCTZ 20-12.5 MG TAB) 1 Each Tablet, 1 TAB PO DAILY for BLOOD PRESSURE LAST DOSE GIVEN: DATE: 06/08/2015 TIME: 9 am NEXT DOSE DUE: DATE: 06/09/2015 TIME: 9 am 01/13/15 CHAN KELSEY II, MD May 28, 2018 07:59
[2018-05-28] MEDS: FERROUS SULFATE 325 MG TABLET. PO SCH ×2 (08:17→17:44)
--- NOTE | 2018-05-28 08:32 | PDOC ---
ORTHO PROGRESS NOTES Subjective She has been feeling a little more fatigue lately. Denies any dizziness or lightheadedness. She feels like her pain is tolerable. Vitals Vital Signs Date Time Temp Pulse Resp B/P (MAP) Pulse Ox O2 Delivery O2 Flow Rate FiO2 05/28/18 07:30 98.1 82 18 104/54 (71) 98 Room Air 98.1 Labs Laboratory Tests Test 05/27/18 01:55 05/28/18 04:30 Hemoglobin 7.1 g/dL (12.0-15.5) 6.8 g/dL (12.0-15.5) Hematocrit 21.9 % (36.0-47.0) 21.2 % (36.0-47.0) Mean Corpuscular Hemoglobin Concent 32 g/dL (31-37) 32 g/dL (31-37) Prothrombin Time 16.1 SEC (11.7-14.0) 26.5 SEC (11.7-14.0) Prothromb Time International Ratio 1.3 (0.8-1.1) 2.5 (0.8-1.1) Sodium Level 144 mmol/L (136-145) Potassium Level 3.5 mmol/L (3.5-5.1) Chloride Level 108 mmol/L (98-107) Carbon Dioxide Level 25 mmol/L (21-32) Anion Gap 11 (6-14) Blood Urea Nitrogen 12 mg/dL (7-20) 11 mg/dL (7-20) Creatinine 0.8 mg/dL (0.6-1.0) 0.7 mg/dL (0.6-1.0) Estimated GFR (Cockcroft-Gault) 79.0 92.2 BUN/Creatinine Ratio 15 (6-20) Glucose Level 140 mg/dL (70-99) Calcium Level 7.7 mg/dL (8.5-10.1) Total Bilirubin 0.1 mg/dL (0.2-1.0) Aspartate Amino Transf (AST/SGOT) 12 U/L (15-37) Alanine Aminotransferase (ALT/SGPT) 13 U/L (14-59) Alkaline Phosphatase 69 U/L (46-116) Total Protein 5.6 g/dL (6.4-8.2) Albumin 2.4 g/dL (3.4-5.0) Albumin/Globulin Ratio 0.8 (1.0-1.7) Vancomycin Level Trough 12.6 mcg/mL (10.0-20.0) Vancomycin Last Dose Date Vancomycin Last Dose Time Procalcitonin < 0.10 ng/mL (0.00-0.10) Laboratory Tests Test 05/28/18 04:30 Hemoglobin 6.8 g/dL (12.0-15.5) Hematocrit 21.2 % (36.0-47.0) Mean Corpuscular Hemoglobin Concent 32 g/dL (31-37) Prothrombin Time 26.5 SEC (11.7-14.0) Prothromb Time International Ratio 2.5 (0.8-1.1) Blood Urea Nitrogen 11 mg/dL (7-20) Creatinine 0.7 mg/dL (0.6-1.0) Estimated GFR (Cockcroft-Gault) 92.2 Procalcitonin < 0.10 ng/mL (0.00-0.10) Notes No growth yet on cultures. She is awake and alert and lying in bed. Dressing is intact. Normal motor and sensation are present in her operative extremity. Assessment and Plan Given her drop in hemoglobin and symptoms, we will transfuse 1 unit. We will reevaluate her. I would anticipate discharge later today, as long as it is okay with infectious disease. CHAN KELSEY II, MD May 28, 2018 08:32
--- NOTE | 2018-05-28 09:19 | PDOC ---
Infectious Disease Note Subjective Subjective pt is feeling better ROS ROS no n/v/d/sob Vital Sign Vital Signs Vital Signs Date Time Temp Pulse Resp B/P (MAP) Pulse Ox O2 Delivery O2 Flow Rate FiO2 05/28/18 07:30 98.1 82 18 104/54 (71) 98 Room Air 98.1 Physical Exam PHYSICAL EXAM GENERAL: Alert, oriented female, not in distress. VITAL SIGNS: Stable HEENT: NAD. NECK: Supple, no JVP, no lymphadenopathy. LUNGS: Clear. HEART: S1, S2 regular. ABDOMEN: Benign. EXTREMITIES: No edema, cyanosis. SKIN: Unremarkable. Post-surgical dressing not opened. NEUROLOGIC: The patient is neurologically alert, awake and appropriate. No focal neurologic deficit. Labs Lab Laboratory Tests Test 05/28/18 04:30 Hemoglobin 6.8 g/dL (12.0-15.5) Hematocrit 21.2 % (36.0-47.0) Mean Corpuscular Hemoglobin Concent 32 g/dL (31-37) Prothrombin Time 26.5 SEC (11.7-14.0) Prothromb Time International Ratio 2.5 (0.8-1.1) Blood Urea Nitrogen 11 mg/dL (7-20) Creatinine 0.7 mg/dL (0.6-1.0) Estimated GFR (Cockcroft-Gault) 92.2 Procalcitonin < 0.10 ng/mL (0.00-0.10) Micro all cultures are neg so far Objective Assessment Left SHRUTHI infection s/p explantation on 05/25/18 RA HTN Obesity Plan Plan of Care dapto and zosyn check cultures supportive care d/w in detail, various possibility discussed including no infection vs unusual infection pt wants the best regimen , has no problem with multiple infusions process explained, side effects of picc and antibiotics explained in detail f/u with me in 2 wks wkly cbc, bun/cr, cpk, sed rate fax to [phone] MAUREEN MO MD May 28, 2018 09:19
[2018-05-28] MEDS: LACTOBACILLUS RHAMNOSUS GG 1 CAPSULE. PO SCH (09:41)
[2018-05-28] MEDS: MAGNESIUM OXIDE 400 MG TABLET PO SCH (09:41)
[2018-05-28] MEDS: hydrOXYzine PAMOATE 25 MG CAPSULE PO SCH ×3 (09:42→17:44)
[2018-05-28] MEDS: GABAPENTIN 300 MG CAPSULE. PO SCH (09:42)
[2018-05-28] MEDS: MULTIVITAMIN with MINERAL TABLET. PO SCH (09:42)
[2018-05-28] MEDS: LISINOPRIL 20 MG TABLET PO SCH (09:42)
[2018-05-28] MEDS: hydroCHLOROthiazide 12.5 MG CAPSULE PO SCH (09:42)
[2018-05-28] MEDS: SERTRALINE 50 MG TABLET. PO SCH (09:43)
[2018-05-28] MEDS: SENNOSIDES/DOCUSATE 8.6/50MG TABLET. PO SCH (09:43)
--- NOTE | 2018-05-28 10:53 | NUR ---
Pharmacy Warfarin Dosing Note S:Pharmacy consulted to assist with anticoagulation therapy started 05/25/18 with target INR: 1.6 - 2.5 O:TITA NEW is a 42 year old F with SHRUTHI LABS: Last INR: 2.5 Last HGB: 6.8 Last HCT: 21.2 Last PLT: 375 Last dose of 5 mg given on 05/27/18 at 1700 Previous Regimen: Vitamin K given: Drug Interaction Changes: Ongoing Drug Interactions: A:INR of 2.5 is within desired range. Target range for this patient is: 1.6 - 2.5 P: Warfarin dose: Hold Today at 1600 due to precipitous rise in INR. Bridge Therapy: None Next INR due tomorrow. Pharmacy anticoagulation service will continue to follow. AMANDA MELGAR [facility], 05/28/18 [id number]
[2018-05-28] MEDS: DAPTOmycin (GENERIC) IVPB 670 MG in IV NORMAL SALINE 50ML 50 ML IV SCH (11:39)
[2018-05-28] MEDS: MORPHINE SULFATE 4 MG/ML VIAL. IV PRN (11:40)
--- NOTE | 2018-05-28 13:45 | NUR ---
SW following. Discussed with RN. ANDREINA sent home IV referral to [facility] - awaiting benefits and costs involved. ANDREINA met with pt to determine home health agency, pt has had home health in the past but could not remember the name of the agency but would like to use them again. SW looked in previous hospital visits, pt had [facility]. SW faxed referral to [facility] (ph: [phone], fax: [phone]). SW will continue to follow. RN notified.
--- NOTE | 2018-05-28 14:50 | NUR ---
SW following. Carmela needing clinical information for pre auth. SW faxed ID notes. Carmela should be coming by to teach around 1515/1530. Pt will be covered at 100% for home infusion. SW awaiting confirmation of home health services from [facility]. Home health orders will need to be faxed to [facility] (ph: [phone], fax: [phone]). RN notified. SW will continue to follow.
--- NOTE | 2018-05-28 15:15 | NUR ---
Spoke with Carmela Guadalupe discussing pt ABT regimen. Home Zoysn scheduled every 8 hours. Hospital Zoysn scheduled every 6 hours. Hospital Zoysn 1800 held to follow home schedule. Anayeli explains pt will get Zoysn dose at 2100.
--- NOTE | 2018-05-28 16:06 | NUR ---
SW following. Discharge orders for home health have been faxed to [facility]. No further SW needs at this time.
--- NOTE | 2018-05-28 16:30 | NUR ---
[facility]oke with [facility] pharmac[facility] explaining it is ok to change medication oxycodone 60mg 1 tab to oxycodone 30mg 2 tabs. Pharmacist explains she will only be able to dispense #30. Voiced understanding. Explained to pt situation. Pt voiced understanding explaining she is following up with primary in AM and will get pain medication from her.
[2018-05-28 16:44] LABS: HEMATOCRIT 25.4 % (36.0-47.0); HEMOGLOBIN 8.2 g/dL (12.0-15.5)
--- NOTE | 2018-05-28 19:00 | NUR ---
Discharge orders placed. Discussed discharge instructions/medications with pt. Explained pt will have home health visit tomorrow and Carmela for home infusion tonight. Lab work order given to pt explaining labs need to be drawn weekly. Follow up appt for Dr. Gonzalez and Dr. Chahal need to be made for 2 weeks. Pt voiced understanding. Prescription, oxycodone 60mg #30, given to to fill. Discussed dressing needs to stay dry. If dressing gets saturated pt may change. Extra PANKAJ dressing given to pt. PICC care given to pt. Pt wheeled off unit accompanied by LOUIE Douglas and pt without complications.
--- NOTE | 2018-05-29 09:11 | PDOC3 ---
Discharge Summary Visit Information Date of Admission: May 25, 2018 Date of Discharge: May 28, 2018 Admitting Diagnosis: left total hip arthroplasty infection Brief Hospital Course Allergies Allergies Coded Allergies Type Severity Reaction Last Updated Verified No Known Drug Allergies 06/05/15 No Vital Signs Vital Signs Date Time Temp Pulse Resp B/P (MAP) Pulse Ox O2 Delivery O2 Flow Rate FiO2 05/28/18 17:46 16 Room Air 05/28/18 16:04 99.6 80 136/86 99.6 05/28/18 14:50 96 Lab Results Laboratory Tests Test 05/28/18 04:30 05/28/18 15:50 Hemoglobin 6.8 g/dL (12.0-15.5) 8.2 g/dL (12.0-15.5) Hematocrit 21.2 % (36.0-47.0) 25.4 % (36.0-47.0) Mean Corpuscular Hemoglobin Concent 32 g/dL (31-37) 32 g/dL (31-37) Prothrombin Time 26.5 SEC (11.7-14.0) Prothromb Time International Ratio 2.5 (0.8-1.1) Blood Urea Nitrogen 11 mg/dL (7-20) Creatinine 0.7 mg/dL (0.6-1.0) Estimated GFR (Cockcroft-Gault) 92.2 Procalcitonin < 0.10 ng/mL (0.00-0.10) Laboratory Tests Test 05/28/18 15:50 Hemoglobin 8.2 g/dL (12.0-15.5) Hematocrit 25.4 % (36.0-47.0) Mean Corpuscular Hemoglobin Concent 32 g/dL (31-37) Brief Hospital Course Ms. 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 Her femoral stem is loose. Preoperative workup was consistent with likely infection and had a discussion of the risks, benefits, and alternatives to left hip resection with antibiotic spacer placement and she elected to proceed. She tolerated surgery well and recovered well from anesthesia. She was taken to the medical surgical floor for care and observation. She received instruction from PT and OT. Infectious disease was consult and followed along and managed her antibiotics. Cultures did not grow any organisms during this hospitalization. Her hospitalization was tolerated well by her, she remained hemodynamically stable and afebrile. Her hemoglobin did drop down to 6.8 and given her fatigability I elected to discuss transfusing 1 unit with her and she elected to receive this. She was having normal bowel and bladder function at the time of discharge. Her pain was controlled on oral pain medicine. She was tolerating regular diet. She is maintaining her activities of daily living well. Discharge Information Condition at Discharge: Stable Follow Up: Weeks Disposition/Orders: D/C to Home w/ HH Scheduled Cholecalciferol (Vitamin D3) (Vitamin D3) 5,000 Unit Tablet, 50,000 UNIT PO WEEKLY for SUPP, (Reported) Entered as Reported by: PAUL FUENTES on 05/11/18 105 Fentanyl (FENTANYL 100mcg/hr) 1 Each Patch.td72, 1 PATCH TP Q3DAYS for PAIN, #10 (Reported) Entered as Reported by: PAUL FUENTES on 05/11/18 105 Last Taken: Unknown Dose on 05/24/18 Last Action: HELD on 05/25/18750 by ESTUARDO KELSEY MD Gabapentin (Gabapentin) 600 Mg Tablet, 600 MG PO BID for NEUROGENIC PAIN, ( Reported) Entered as Reported by: PAUL FUENTES on 05/11/18 105 Last Action: Converted on 05/25/18750 by ESTUARDO KELSEY MD Hydroxychloroquine Sulfate (Hydroxychloroquine Sulfate) 200 Mg Tablet, 200 MG PO DAILY for ARTHRITIS, (Reported) Entered as Reported by: PAUL FUENTES on 05/11/18 105 Last Action: HELD on 05/25/18750 by ESTUARDO KELSEY MD Hydroxyzine Pamoate (Hydroxyzine Pamoate) 25 Mg Capsule, 25 MG PO QID for SLEEP, (Reported) Entered as Reported by: PAUL FUENTES on 05/11/18 1055 Last Action: Converted on 05/25/18750 by ESTUARDO KELSEY MD Lisinopril/Hydrochlorothiazide (Lisinopril-Hctz 20-12.5 Mg Tab) 1 Each Tablet, 1 TAB PO DAILY for BLOOD PRESSURE, (Reported) LAST DOSE GIVEN: DATE: 06/08/2015 TIME: 9 am NEXT DOSE DUE: DATE: 06/09/2015 TIME: 9 am Entered as Reported by: GALA WOODWARD on 01/13/15 110 Last Action: Converted on 05/25/18750 by ESTUARDO KELSEY MD Magnesium Oxide (Magnesium) 400 Mg Capsule, 400 MG PO BID for SUPP, (Reported) Entered as Reported by: PAUL FUENTES on 05/11/18 105 Last Action: Converted on 05/25/18750 by ESTUARDO KELSEY MD Sertraline Hcl (Zoloft) 100 Mg Tablet, 100 MG PO DAILY for ANTI-DEPRESSANT, Ref 0 (Reported) Entered as Reported by: PAUL FUENTES on 05/11/18 105 Last Action: Converted on 05/25/18750 by ESTUARDO KELSEY MD Scheduled PRN Cholecalciferol (Vitamin D3) (Vitamin D) 1,000 Unit Capsule, 1,000 UNIT PO TID PRN for SUPP, (Reported) Entered as Reported by: PAUL FUENTES on 05/11/18 105 Last Action: Converted on 05/25/18750 by ESTUARDO KELSEY MD Oxycodone Hcl (Oxycodone Hcl Immed.release) 10 Mg Tablet, 45 MG PO QID PRN for PAIN, Ref 0 (Reported) Entered as Reported by: OSIRIS THAO on 05/29/15 1344 Last Taken: Unknown Dose on 05/25/18 0500 Last Action: HELD on 05/25/18750 by ESTUARDO KELSEY MD Tizanidine Hcl (Tizanidine Hcl) 4 Mg Tablet, 4 MG PO TID PRN for MUSCLE SPASMS, (Reported) Entered as Reported by: PAUL FUENTES on 05/11/18 1055 Last Action: Converted on 05/25/18750 by ESTUARDO KELSEY MD Zolpidem Tartrate (Ambien) 5 Mg Tablet, 5 MG PO PRN QHS PRN for INSOMNIA, Ref 0 (Reported) May take as needed for insomnia. Entered as Reported by: GALA WOODWARD on 01/13/15 110 Last Action: HELD on 05/25/18750 by ESTUARDO KELSEY MD Discontinued Medications Meloxicam (Meloxicam) 7.5 Mg Tablet, 7.5 MG PO DAILY for PAIN, (Reported) Entered as Reported by: APUL FUENTES on 05/11/18 1053 Last Action: HELD on 05/25/18 6981 by ESTUARDO KELSEY MD Patient Instructions Patient Instructions She'll be discharged home. Partial weightbearing with a walker. Wound care was discussed with her. Antibiotics per infectious disease. She will follow up with myself in 2 weeks and infectious disease in 2 weeks. Home health has been arranged. Worrisome signs and symptoms that should prompt a phone call were discussed with her. CHAN KELSEY II, MD May 29, 2018 09:11
[2018-07-20] MEDS ORDERED: MELO7.5T5 PO (10:50)
== END 2018-05-28 19:00 | disposition home health service (06) | DRG 466 ==
LOC: OPSVCIP 06:16 → 4 NORTH 12:57
PROVIDERS: ADMIT Orthopaedic Surgery Sports Medicine; ATTEND Orthopaedic Surgery Sports Medicine
PROC: 0SRB0EZ Replacement of Left Hip Joint with Articulating Spacer, Open Approach (ICD-10-PCS; 2018-05-25)
PROC: 0SPB0JZ Removal of Synthetic Substitute from Left Hip Joint, Open Approach (ICD-10-PCS; principal; 2018-05-25 07:30)
PROC: 02HV33Z Insertion of Infusion Device into Superior Vena Cava, Percutaneous Approach (ICD-10-PCS; 2018-05-26)
PROC: B5181ZA Fluoroscopy of Superior Vena Cava using Low Osmolar Contrast, Guidance (ICD-10-PCS; 2018-05-26)
PROC: B548ZZA Ultrasonography of Superior Vena Cava, Guidance (ICD-10-PCS; 2018-05-26)
PROC: 30233N1 Transfusion of Nonautologous Red Blood Cells into Peripheral Vein, Percutaneous Approach (ICD-10-PCS; 2018-05-26)
DX: T84.52XA Infection and inflammatory reaction due to internal left hip prosthesis, initial encounter (principal); E43 Unspecified severe protein-calorie malnutrition; Z68.41 Body mass index [BMI] 40.0-44.9, adult; R71.0 Precipitous drop in hematocrit; T84.031A Mechanical loosening of internal left hip prosthetic joint, initial encounter; I10 Essential (primary) hypertension; E66.9 Obesity, unspecified; M06.9 Rheumatoid arthritis, unspecified; Z96.653 Presence of artificial knee joint, bilateral; Y83.1 Surgical operation with implant of artificial internal device as the cause of abnormal reaction of the patient, or of later complication, without mention of misadventure at the time of the procedure; Y92.89 Other specified places as the place of occurrence of the external cause; Z98.84 Bariatric surgery status
CPT/HCPCS: 36415; 36569; 72170; 76000; 76937; 77001; 80053; 80202; 81025; 82565; 84145; 84520; 85007; 85014; 85018; 85025; 85610; 85730; 86850; 86900; 86901; 86920; 87071; 87075; 87102; 87116; 87176; A7015; C1713; C1751; C1892; J0171; J0696; J0878; J1100; J1170; J1885; J2001; J2250; J2270; J2405; J2543; J2704; J2710; J2795; J3010; J3260; J3370; J3490; J7030; J7040; J7120; P9016; Q0177; 97110; 97116; 97150; 97530; 97535

== ENCOUNTER → 2018-06-29 | Outpatient (CLI) | payer OTHER ==
[2018-05-28 16:04] VITALS: BP 136/86
[~2018-06-29] MED LIST changes: -HYDROcodone/APAP 7.5/325MG 1 TAB TABLET PO PRN; +MELO7.5T5 PO; -MELOXICAM 7.5 MG TABLET PO PRN; -MORPHINE SULFATE 5 MG, KETOROLAC 30MG VIAL 30 MG, ROPIVacaine 0.5% PF 60 ML, EPINEPHrin... INT ART ONE; -TRANEXAMIC ACID 1,000 MG in IV NS 50ML -- 1ST BAG INJ ONE; +WARF1TAB69 PO
[2018-06-29 12:14] LABS: BLOOD UREA NITROGEN 12 mg/dL (7-20); CREATINE KINASE 43 U/L (26-192)
[2018-06-29 12:26] LABS: BASO % 1 % (0-3); EOS # 0.4 x10^3/uL (0.0-0.7); EOS % 9 % (0-3); HEMATOCRIT 28.5 % (36.0-47.0); HEMOGLOBIN 8.9 g/dL (12.0-15.5); LYMPH # 1.9 x10^3/uL (1.0-4.8); LYMPH % 45 % (24-48); MEAN CORPUSCULAR HEMOGLOBIN 25 pg (25-35); MEAN CORPUSCULAR HGB CONC 31 g/dL (31-37); MEAN CORPUSCULAR VOLUME 78 fL (79-100); MONO # 0.4 x10^3/uL (0.0-1.1); MONO % 10 % (0-9); NEUT # 1.5 x10^3uL (1.8-7.7); NEUT % 36 % (31-73); PLATELET COUNT 326 x10^3/uL (140-400); RED BLOOD COUNT 3.65 x10^6/uL (3.50-5.40); RED CELL DISTRIBUTION WIDTH 15.7 % (11.5-14.5); WHITE BLOOD COUNT 4.2 x10^3/uL (4.0-11.0)
== END | disposition home or self-care (01) ==
LOC: SPEC 11:41
PROVIDERS: ATTEND Orthopaedic Surgery Sports Medicine
DX: Z79.2 Long term (current) use of antibiotics (principal)
CPT/HCPCS: 36415; 82550; 84520; 85025; 85651

== ENCOUNTER → 2018-07-17 | Outpatient (CLI) | payer OTHER ==
[2018-05-28 16:04] VITALS: BP 136/86
[~2018-07-17] MED LIST changes: +LIDOCAINE WITH 8.4% SOD BICARB 3 ML DISP.SYRIN. INJ ONE
--- NOTE | 2018-07-17 15:54 | RAD ---
CT study of the left hip without contrast Clinical indications: Left hip prosthetic loosening and left hip pain. TECHNIQUE: Noncontrast helical CT scanning of the left hip was performed. Multiplanar 2-D reconstructions were generated. PQRS compliance Statement One or more of the following individualized dose reduction techniques were utilized for this study: 1. Automated exposure control 2. Adjustment of the mA and/or kV according to patient size 3. Use of iterative reconstruction technique COMPARISON: AP view of the pelvis dated May 25, 2018. Intraoperative fluoroscopic spot view of the left hip dated May 15, 2018. FINDINGS: Between May 15, 2018 and May 25, 2018, the patient had a left hip arthroplasty revision. There is a radiolucent cavity around the femoral stem of the prosthetic component. This is due to the larger cavity created by the initial prosthetic component seen on May 15, 2018. It is difficult to exclude loosening and/or infection based on a single CT study. The edge of the cavity is sclerotic and no lytic process or periosteal reaction is evident. No acute fracture is seen. An old screw hole of the superior aspect of the acetabulum is seen. No lytic process or radiolucency is seen involving the left acetabulum. No soft tissue air is evident. Small left hip joint effusion is seen. No radiopaque loose body is evident. No soft tissue abscess or soft tissue mass is evident. Reactive left inguinal lymph nodes are seen. Largest lymph node measures 17 mm. IMPRESSION: Left hip arthroplasty. There is a radiolucent cavity around the femoral stem and this is secondary to the larger initial femoral prosthesis on May 15, 2018. The patient had a revision arthroplasty on May 25, 2018. It is difficult to exclude loosening and/or infection on a single CT study. However no lytic process or periosteal reaction is seen. No acute fracture is seen. Small left hip joint effusion is seen. Reactive left inguinal lymph nodes. Electronically signed by: Andrew Peterson MD (07/17/2018 3:51 PM) [id number]
--- NOTE | 2018-07-17 16:19 | RAD ---
Fluoroscopically guided left hip joint aspiration, 07/17/2018: HISTORY: Infected prosthesis Under local anesthesia, aseptic conditions and fluoroscopic guidance an 18-gauge spinal needle was passed down to the level of the left hip joint along the margins of the radiopaque spacing device. No free joint fluid was encountered despite sampling multiple areas. A small amount of preservative-free saline was then injected into the joint for joint irrigation. 5 cc of blood-tinged fluid was then drawn and sent to the lab for appropriate studies. The needle was removed and hemostasis obtained. 1.8 minutes of fluoroscopy time was utilized. 2 fluoroscopic spot images were recorded. The patient tolerated the procedure well and left the department in good condition. Electronically signed by: Soy Blancas MD (07/17/2018 4:16 PM) [facility]
[2018-07-17 17:15] LABS: BF SOURCE SYNOVIAL
[2018-07-17 17:16] LABS: BF CLARITY HAZY; BF COLOR STRAW; BF RBC COUNT 3900 /cmm (Not Established); BF WBC COUNT 3 /cmm (Not Established)
== END | disposition home or self-care (01) ==
LOC: CT 10:33
PROVIDERS: ATTEND Orthopaedic Surgery Sports Medicine
DX: T84.031A Mechanical loosening of internal left hip prosthetic joint, initial encounter (principal); Y83.1 Surgical operation with implant of artificial internal device as the cause of abnormal reaction of the patient, or of later complication, without mention of misadventure at the time of the procedure; Y92.89 Other specified places as the place of occurrence of the external cause
CPT/HCPCS: 20605; 20610; 73700; 77002; 87071; 87075; 89050; 89060

== ENCOUNTER → 2018-07-20 | Outpatient (CLI) | payer OTHER ==
[2018-05-28 16:04] VITALS: BP 136/86
[~2018-07-20] MED LIST changes: -LIDOCAINE WITH 8.4% SOD BICARB 3 ML DISP.SYRIN. INJ ONE
[2018-07-20 11:17] LABS: BASO % 1 % (0-3); EOS # 0.2 x10^3/uL (0.0-0.7); EOS % 4 % (0-3); HEMATOCRIT 31.6 % (36.0-47.0); HEMOGLOBIN 9.8 g/dL (12.0-15.5); LYMPH # 2.8 x10^3/uL (1.0-4.8); LYMPH % 45 % (24-48); MEAN CORPUSCULAR HEMOGLOBIN 24 pg (25-35); MEAN CORPUSCULAR HGB CONC 31 g/dL (31-37); MEAN CORPUSCULAR VOLUME 76 fL (79-100); MONO # 0.8 x10^3/uL (0.0-1.1); MONO % 12 % (0-9); NEUT # 2.4 x10^3uL (1.8-7.7); NEUT % 39 % (31-73); PLATELET COUNT 443 x10^3/uL (140-400); RED BLOOD COUNT 4.18 x10^6/uL (3.50-5.40); RED CELL DISTRIBUTION WIDTH 15.9 % (11.5-14.5); WHITE BLOOD COUNT 6.3 x10^3/uL (4.0-11.0)
[2018-07-20 11:24] LABS: PROTHROMBIN TIME PATIENT 12.5 SEC (11.7-14.0)
[2018-07-20 11:26] LABS: ALBUMIN 3.2 g/dL (3.4-5.0); CALCIUM 9.1 mg/dL (8.5-10.1); CREATININE 0.6 mg/dL (0.6-1.0); GFR 109.6; POTASSIUM 4.1 mmol/L (3.5-5.1)
[2018-07-20 11:42] LABS: BILIRUBIN,URINE NEGATIVE (NEG); CLARITY,URINE CLEAR; COLOR,URINE YELLOW; NITRITE,URINE NEGATIVE (NEG); PROTEIN,URINE NEGATIVE (NEG-TRACE)
[2018-07-20 11:58] LABS: BACTERIA,URINE 0 /HPF (0-FEW); RBC,URINE 0 /HPF (0-2); SQUAMOUS EPITHELIAL CELL,UR MOD /LPF; WBC,URINE 0 /HPF (0-4)
== END | disposition home or self-care (01) ==
LOC: SURGPAT 10:32
PROVIDERS: ATTEND Orthopaedic Surgery Sports Medicine
DX: Z01.818 Encounter for other preprocedural examination (principal); M25.859 Other specified joint disorders, unspecified hip
CPT/HCPCS: 36415; 80048; 81001; 82040; 85025; 85610; 85651; 85730; 87641

== ENCOUNTER 2018-07-27 07:15 | Inpatient (IN) | payer OTHER ==
[~2018-07-27] VITALS: Ht 165.1 cm; Wt 116.6 kg
[2018-07-27] VITALS (8 sets, daily range): BP systolic 116–156; BP diastolic 58–90
[~2018-07-27 07:15] MED LIST changes: +HYDROcodone/APAP 7.5/325MG 1 TAB TABLET PO PRN; +HYDROmorphone 2 MG/ML VIAL IV PRN; +IV RINGERS,LACTATED 1000ML 1,000 ML IV SCH; +LIDOCAINE 1% PF 2 ML VIAL. ID PRN; +MELOXICAM 7.5 MG TABLET PO PRN; +MORPHINE SULFATE 5 MG, KETOROLAC 30MG VIAL 30 MG, ROPIVacaine 0.5% PF 60 ML, EPINEPHrin... INT ART ONE; +ONDANSETRON PF 4 MG/2 ML VIAL. IV PRN; +PROCHLORPERAZINE 10 MG/2 ML VIAL. IV PRN; +TRANEXAMIC ACID 1,000 MG in IV NS 50ML -- 1ST BAG INJ ONE; +VANCOMYCIN 1GM IVPB FOR OMNI 250 ML IV PRN; -WARF1TAB69 PO; +fentaNYL PF VIAL 100 MCG/2 ML VIAL IV PRN
[2018-07-27 07:53] LABS: U PREG PATIENT NEGATIVE (NEG)
[2018-07-27] MEDS ORDERED: TRANEXAMIC ACID 1,000 MG in IV NS 50ML -- 2ND BAG INJ ONE (08:00)
[2018-07-27 08:15] LABS: PROTHROMBIN TIME PATIENT 13.3 SEC (11.7-14.0)
[2018-07-27] MEDS ORDERED: LIDOCAINE 2% PF 5 ML VIAL. ONE (08:53)
[2018-07-27] MEDS ORDERED: ONDANSETRON PF 4 MG/2 ML VIAL. ONE ×2 (08:53→13:32)
[2018-07-27] MEDS ORDERED: DEXAMETHASONE SOD PHOS 4 MG/ML VIAL ONE (08:53)
[2018-07-27] MEDS ORDERED: FAMOTIDINE 20 MG/2 ML VIAL ONE (08:53)
[2018-07-27] MEDS ORDERED: PROPOFOL 20 ML IV ONE (08:53)
[2018-07-27] MEDS ORDERED: ROCURONIUM 50 MG/5 ML VIAL. ONE (08:53)
[2018-07-27] MEDS ORDERED: MIDAZOLAM HCL/PF 2 MG/2 ML VIAL. ONE (08:54)
[2018-07-27] MEDS ORDERED: fentaNYL PF VIAL 100 MCG/2 ML VIAL ONE ×4 (08:54→14:54)
[2018-07-27] MEDS ORDERED: VANCOMYCIN 1GM IVPB FOR OMNI. ONE (09:00)
[2018-07-27] MEDS ORDERED: ZOLPIDEM 5 MG TABLET. PO PRN ×2 (10:00→14:30)
[2018-07-27] MEDS: GABAPENTIN 300 MG CAPSULE. PO SCH ×2 (11:00→21:14)
[2018-07-27] MEDS ORDERED: KETAMINE HCL IN NACL, ISO-OSM 50 MG/5 ML SYRINGE ONE (11:12)
[2018-07-27] MEDS ORDERED: 0.9 % SODIUM CHLORIDE 20 ML VIAL. IJ ONE (11:50)
[2018-07-27] MEDS ORDERED: VECURONIUM BOLUS 10 MG VIAL. IV ONE (11:50)
[2018-07-27] MEDS ORDERED: SEVOFLURANE > 120 MINUTES. IH ONE (12:00)
[2018-07-27] MEDS: MAGNESIUM OXIDE 400 MG TABLET PO SCH ×2 (12:00→21:14)
[2018-07-27] MEDS: SERTRALINE 50 MG TABLET. PO SCH (12:00)
[2018-07-27] MEDS ORDERED: tiZANidine 4 MG TABLET. PO PRN (12:15)
[2018-07-27] MEDS: hydrOXYzine PAMOATE 25 MG CAPSULE PO SCH ×3 (13:00→21:14)
[2018-07-27] MEDS ORDERED: NEOSTIGMINE METHYLSULFATE 5 MG/5 ML SYRINGE. ONE (13:25)
[2018-07-27] MEDS ORDERED: GLYCOPYRROLATE 1 MG/5 ML VIAL. ONE (13:25)
[2018-07-27] MEDS ORDERED: MORPHINE SULFATE 2 MG/ML VIAL. ONE ×2 (14:15→14:54)
[2018-07-27] MEDS ORDERED: PROCHLORPERAZINE 10 MG/2 ML VIAL. ONE (14:16)
--- NOTE | 2018-07-27 14:19 | PDOC4 ---
Operative Note Operative Note Date of procedure: 07/27/2018 Surgeon: Manny Kelsey Asst.: Sudeep Gambino, advanced practice registered nurse who was necessary for manipulation of the leg, retraction throughout this case as well as wound closure Preoperative diagnosis: Left total hip arthroplasty infection, status post antibiotic spacer and explantation Postoperative diagnosis: Same Procedure performed: revision total hip arthroplasty, left side Anesthesia: Gen. Findings: no gross purulence. 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 She had presented with a loose femoral stem and subsequent signs of infection and therefore underwent explan tation and antibiotic spacer as well as extensive debridement. I had seen her in my clinic in follow-up, she had been off antibiotics, hip aspiration was consistent with clearance of the infection. We discussed proceeding with revision spacer and debridement versus revision total hip arthroplasty and she wished to proceed. Description of procedure: Patient was greeted in the preoperative area by myself for the correct extremity was verified and marked. She was taken back to the operative suite. Her antibiotics were held. Once in the operating room, she was transferred gently supine to the operating table and had successful induction of a general anesthetic. She was then placed into the lateral decubitus position with the left side up and secured to the bed with our hip positioning device. All down pressure points were padded, an axillary roll was used. The left lower extremity and hip were prepped and draped in our usual sterile fashion including an I[place]. We conducted our standard preoperative timeout. I then incised skin through her prior skin incision and dissected subcutaneous tissue with electrocautery, cauterizing bleeders as a were encountered. Identified her fascia and incised this in line with the skin incision and bluntly split her gluteus abimbola. I placed my Charnley retractor. There was abundant fibrotic tissue, upon opening her hip capsule, there was no gross purulence noted. I spent quite a bit of time performing my synovectomy with combination of rongeur and electrocautery. I sent off samples for frozen section with findings noted above. After this and releasing the capsule, I was able to dislocate the anabolic spacer and removed this without complication. I then used a curet to send samples from the acetabulum, I used a reverse cutting osteotome to send samples from the femoral canal for culture. After this, I reamed starting with a 48 and reamed up to a 52 which gave a good bleeding bony bed in her acetabulum. Prior to reaming, I thoroughly irrigated the operative field. I then reposit ioned the leg as well as my retractors, I then brought in C-arm to help me address the neocortex that was intramedullary canal, as I had reviewed on CT. I tried drilling through the bone was unable. I was finally able to breach this with the finger device angled towards the medial cortex and impacting a guide julio through it. I then reamed over this guidewire, confirming it was intr amedullary with biplanar fluoroscopy distally. I reamed up to a 12 which gave good chatter. I then removed the guidewire and reamer. I then directed my attention to repositioning the leg and the acetabular retractors and impacted my cup in a position referencing her [facility] anatomy and the crossbar attachment. It had a good fit. I placed a single screw into her posterior column which also had great purchase. I then irrigated this out again, I had done so prior to impacting my cup as well. I then impacted my liner making sure it had fully seated upon circumferential visualization. I then repositioned the leg again, removing my acetabular retractors and placing my proximal femoral retractor. I then began reaming on hand and reamed up to a 13 which gave a tight fit. I then reamed over top of this for the body and then secured my trial body and neck to the intramedullary reamer. I then trialed various head and neck sizes. Once I felt I had achieved good stability are removed the trial components and impacted my stem into position and then trialed head sizes again, selecting the above combination. Prior to impacting the femoral stem, the canal was thoroughly irrigated as well. With the hip reduced, she had good range of motion and stability and leg length. I then closed capsule and the fibrotic tissue with simple interrupted #2 Ethibond. I irrigated out the soft tissues again. I injected my periarticular mixture into the gen-incisional soft tissues. Fashion was closed with running #2 Quill. Inverted interrupted #1 Vicryl was used for the deep subcutaneous tissue and inverted interrupted 2-0 Vicryl was used for the more proximal, superficial, subcutaneous tissues tissue followed by running 4-0 Monocryl for skin. The leg and hip were cleansed and dried and our incision al wound VAC was applied. Prior to wound closure, all cons correct 2. No competitions. At the conclusion of the surgery, she was laid supine and transferred supine to the hospital bed and taken to PACU in a stable and extubated condition. Postoperative plan is to admit to the floor. We will follow along with cultures. She can weight-bear as tolerated. MANNY KELSEY II, MD Jul 27, 2018 14:19
[2018-07-27] MEDS: MORPHINE SULFATE 2 MG/ML VIAL. IV PRN ×6 (14:20→15:54)
[2018-07-27] MEDS: fentaNYL PF VIAL 100 MCG/2 ML VIAL IV PRN ×4 (14:20→15:13)
[2018-07-27] MEDS ORDERED: diphenhydrAMINE 50 MG/ML VIAL IV PRN (14:30)
[2018-07-27] MEDS ORDERED: NALOXONE 0.4 MG/ML VIAL. IV PRN (14:30)
[2018-07-27] MEDS ORDERED: CALCIUM CARBONATE 500 MG TAB.CHEW PO PRN (14:30)
[2018-07-27] MEDS ORDERED: fentaNYL PF VIAL 100 MCG/2 ML VIAL IV PRN (14:30)
[2018-07-27] MEDS ORDERED: 0.9 % SODIUM CHLORIDE 10 ML DISP.SYRIN. IV PRN (14:30)
[2018-07-27] MEDS ORDERED: DEXTROSE 50% 25 GM / 50ML DISP.SYRIN. IV PRN (14:30)
[2018-07-27] MEDS ORDERED: METOCLOPRAMIDE HCL 10 MG/2 ML VIAL. IV PRN (14:30)
[2018-07-27] MEDS ORDERED: PROCHLORPERAZINE 5 MG TABLET. PO PRN (14:30)
[2018-07-27] MEDS ORDERED: MORPHINE SULFATE 2 MG/ML VIAL. IV PRN (14:30)
[2018-07-27] MEDS ORDERED: oxyCODONE IR 5 MG TABLET PO PRN (14:30)
[2018-07-27] MEDS ORDERED: MORPHINE SULFATE/PF 30 ML IV ONE (14:54)
--- NOTE | 2018-07-27 15:04 | RAD ---
Examination: 2 views of the left femur and frontal view of the pelvis HISTORY: History of postop left hip revision COMPARISON: None available FINDINGS: Left total hip arthroplasty changes in normal alignment. Postoperative air identified about the left hip. IMPRESSION: Left total hip arthroplasty changes in normal alignment. Electronically signed by: Glen Blackwood MD (07/27/2018 3:01 PM) [id number]
[2018-07-27] MEDS: MORPHINE SULFATE/PF 30 ML IV PRN (15:55)
[2018-07-27] MEDS: hydroCHLOROthiazide 12.5 MG CAPSULE PO SCH (17:51)
[2018-07-27] MEDS: oxyCODONE IR 5 MG TABLET PO PRN (17:52)
[2018-07-27] MEDS: LISINOPRIL 20 MG TABLET PO SCH (17:53)
[2018-07-27] MEDS: FERROUS SULFATE 325 MG TABLET. PO SCH (17:53)
[2018-07-27] MEDS ORDERED: WARFARIN 7.5 MG TABLET. PO ONE (18:00)
[2018-07-27] MEDS: ONDANSETRON ODT 4 MG TAB.RAPDIS. PO SCH (18:00)
[2018-07-27] MEDS: ONDANSETRON PF 4 MG/2 ML VIAL. IV SCH (18:00)
[2018-07-27] MEDS: IV NORMAL SALINE 1000ML BAG 1,000 ML IV SCH (21:13)
[2018-07-28 03:00] VITALS: BP 96/55
[2018-07-28] MEDS: ONDANSETRON PF 4 MG/2 ML VIAL. IV SCH ×3 (06:00→12:00)
[2018-07-28] MEDS ORDERED: MAGNESIUM HYDROXIDE 2,400 MG/30 ML ORAL.SUSP. PO PRN (06:00)
[2018-07-28] MEDS: ONDANSETRON ODT 4 MG TAB.RAPDIS. PO SCH ×3 (06:00→12:00)
[2018-07-28 06:37] VITALS: BP 114/55
[2018-07-28 06:45] LABS: HEMATOCRIT 27.4 % (36.0-47.0); HEMOGLOBIN 8.6 g/dL (12.0-15.5)
[2018-07-28 07:07] LABS: PROTHROMBIN TIME PATIENT 14.2 SEC (11.7-14.0)
[2018-07-28] MEDS: GABAPENTIN 300 MG CAPSULE. PO SCH ×2 (08:21→21:32)
[2018-07-28] MEDS: CHOLECALCIFEROL (VITAMIN D3) 1,000 UNIT TABLET PO SCH (08:22)
[2018-07-28] MEDS: FERROUS SULFATE 325 MG TABLET. PO SCH ×2 (08:22→17:57)
[2018-07-28] MEDS: MULTIVITAMIN with MINERAL TABLET. PO SCH (08:22)
[2018-07-28] MEDS: SERTRALINE 50 MG TABLET. PO SCH (08:23)
[2018-07-28] MEDS: oxyCODONE IR 5 MG TABLET PO PRN ×4 (08:24→21:35)
[2018-07-28] MEDS: MAGNESIUM OXIDE 400 MG TABLET PO SCH ×2 (08:24→21:31)
[2018-07-28] MEDS: hydroCHLOROthiazide 12.5 MG CAPSULE PO SCH (08:24)
[2018-07-28] MEDS: SENNOSIDES/DOCUSATE 8.6/50MG TABLET. PO SCH (08:24)
[2018-07-28] MEDS: hydrOXYzine PAMOATE 25 MG CAPSULE PO SCH ×4 (08:25→21:31)
[2018-07-28] MEDS: ACETAMINOPHEN 500 MG TABLET PO SCH ×3 (08:30→21:32)
[2018-07-28] MEDS: MORPHINE SULFATE/PF 30 ML IV PRN (10:43)
[2018-07-28 11:15] VITALS: BP 126/73
[2018-07-28] MEDS ORDERED: ONDANSETRON ODT 4 MG TAB.RAPDIS. PO PRN (12:00)
[2018-07-28] MEDS ORDERED: ONDANSETRON PF 4 MG/2 ML VIAL. IV PRN (12:00)
--- NOTE | 2018-07-28 13:25 | PDOC ---
ORTHO PROGRESS NOTES Subjective She feels like she is doing well. 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 No abdominal complaints, no chest pain or trouble breathing Vitals Vital Signs Date Time Temp Pulse Resp B/P (MAP) Pulse Ox O2 Delivery O2 Flow Rate FiO2 07/28/18 11:30 14 Room Air 07/28/18 11:15 97.7 102 126/73 (90) 97 97.7 07/27/18 18:30 2.0 Labs Laboratory Tests Test 07/27/18 07:35 07/27/18 07:50 07/28/18 06:25 Urine Test Negative (NEG) Prothrombin Time 13.3 SEC (11.7-14.0) 14.2 SEC (11.7-14.0) Prothromb Time International Ratio 1.0 (0.8-1.1) 1.1 (0.8-1.1) Activated Partial Thromboplast Time 26 SEC (24-38) Hemoglobin 8.6 g/dL (12.0-15.5) Hematocrit 27.4 % (36.0-47.0) Mean Corpuscular Hemoglobin Concent 31 g/dL (31-37) Laboratory Tests Test 07/28/18 06:25 Hemoglobin 8.6 g/dL (12.0-15.5) Hematocrit 27.4 % (36.0-47.0) Mean Corpuscular Hemoglobin Concent 31 g/dL (31-37) Prothrombin Time 14.2 SEC (11.7-14.0) Prothromb Time International Ratio 1.1 (0.8-1.1) Notes She is awake and alert and sitting in a chair. Dressing is intact, small amount of drainage present. Normal motor and sensation are present in her left lower extremity Assessment and Plan I did discuss with her that she can rest as much as she feels is necessary. We will go slow with PT and OT. I'll follow along with cultures. CHAN KELSEY II, MD Jul 28, 2018 13:25
[2018-07-28 13:33] VITALS: BP 114/51
[2018-07-28] MEDS: LISINOPRIL 20 MG TABLET PO SCH (13:34)
[2018-07-28 14:56] VITALS: BP 99/42
[2018-07-28] MEDS ORDERED: BISACODYL 10 MG SUPP.RECT. PR PRN (16:00)
[2018-07-28] MEDS ORDERED: WARFARIN 5 MG TABLET. PO ONE (16:00)
[2018-07-28] MEDS: IV NORMAL SALINE 1000ML BAG 1,000 ML IV SCH (17:00)
[2018-07-28 18:11] VITALS: BP 112/59
[2018-07-29] MEDS: IV NORMAL SALINE 1000ML BAG 1,000 ML IV SCH ×2 (00:21→08:00)
[2018-07-29] MEDS: MORPHINE SULFATE/PF 30 ML IV PRN (00:46)
[2018-07-29] MEDS: oxyCODONE IR 5 MG TABLET PO PRN ×3 (02:39→15:56)
[2018-07-29] MEDS: ACETAMINOPHEN 500 MG TABLET PO SCH ×4 (03:00→20:46)
[2018-07-29 06:05] VITALS: BP 106/63
--- NOTE | 2018-07-29 08:06 | PDOC ---
ORTHO PROGRESS NOTES Subjective Patient remains painful rating pain at a 6-7 out of 10 with GEOTHERMAL OPERATIONS ENGINEER in place. Post-op Day: 2 Procedure Left hip spacer removal with SHRUTHI Vitals Vital Signs Date Time Temp Pulse Resp B/P (MAP) Pulse Ox O2 Delivery O2 Flow Rate FiO2 07/29/18 06:05 98.1 77 16 106/63 (77) 96 Room Air 98.1 Labs Laboratory Tests Test 07/28/18 06:25 Hemoglobin 8.6 g/dL (12.0-15.5) Hematocrit 27.4 % (36.0-47.0) Mean Corpuscular Hemoglobin Concent 31 g/dL (31-37) Prothrombin Time 14.2 SEC (11.7-14.0) Prothromb Time International Ratio 1.1 (0.8-1.1) Notes awake and alert Assessment and Plan POD # 2 S/P Left hip spacer removal and L SHRUTHI motor and sensory intact dressing dry and intact PT Will discuss d/c of GEOTHERMAL OPERATIONS ENGINEER ADRIEL MCCRAY APRN July 29, 2018 08:06
--- NOTE | 2018-07-29 08:11 | PATHOLOGY ---
[facility] Accession Number: [id number] . 01 Material submitted: . hip - LEFT HIP JOINT - FS. Modifiers: left . 02 Frozen section diagnosis: . INTRAOPERATIVE CONSULTATION WITH FROZEN SECTION: Left hip joint: - Focal 8-10 neutrophils / hp field identified within fibrin - no significant acute inflammatory infiltrate identified within tissue. . The results are reported to Dr. Gonzalez in the operating room. (JPM:pit 07/27/2018) . FROZEN SECTION GROSS DESCRIPTION: Specimen is received fresh for intraoperative consultation, and is designated "left hip joint". This consists of three segments of pink to pinkish-brown rubbery soft tissue, ranging from 0.6 cm up to 1.4 cm in greatest dimension. These are submitted for frozen section as FSA1. The tissue remaining from frozen section is submitted for permanent sections as A1. (JPM:pit 07/27/2018) . Frozen section performed at [facility], [address] [place] [address], [place] [address]. ADRIANAP/FÁTIMA . 02 Diagnosis: Left hip joint tissue: - Segments of fibrin focally containing up to 8-10 neutrophils per high power field, and segment of synovial tissue showing no significant acute inflammation with less than 5 neutrophils per high power field. . (JPM:mml; 07/28/2018) [facility]/07/28/2018 . 02 Electronically signed: . Reece Cardenas MD, Pathologist NPI- [id number] . 01 Gross description: . To be dictated by the pathologist /TOB . 02 Pathologist provided ICD-10: T84.52XA . 02 CPT . 938029, [id number] Specimen Comment: A courtesy copy of this report has been sent to Specimen Comment: [phone], . Specimen Comment: Report sent to / DR KNOX Specimen Comment: A duplicate report has been generated due to demographic updates. Performed at: [facility] [address] [id number] MD Zac Linares MD Phone: [phone] Performed at: 02 [facility] [address] [place], [place] [id number] MD Reece Cardenas MD Phone: [phone]
[2018-07-29] MEDS: hydroCHLOROthiazide 12.5 MG CAPSULE PO SCH (08:16)
[2018-07-29] MEDS: GABAPENTIN 300 MG CAPSULE. PO SCH ×2 (08:16→20:45)
[2018-07-29] MEDS: MULTIVITAMIN with MINERAL TABLET. PO SCH (08:16)
[2018-07-29] MEDS: SERTRALINE 50 MG TABLET. PO SCH (08:16)
[2018-07-29] MEDS: FERROUS SULFATE 325 MG TABLET. PO SCH ×2 (08:17→15:52)
[2018-07-29] MEDS: CHOLECALCIFEROL (VITAMIN D3) 1,000 UNIT TABLET PO SCH (08:17)
[2018-07-29] MEDS: MAGNESIUM OXIDE 400 MG TABLET PO SCH ×2 (08:17→20:45)
[2018-07-29] MEDS: SENNOSIDES/DOCUSATE 8.6/50MG TABLET. PO SCH (08:17)
[2018-07-29] MEDS: hydrOXYzine PAMOATE 25 MG CAPSULE PO SCH ×4 (08:17→20:46)
[2018-07-29] MEDS: LISINOPRIL 20 MG TABLET PO SCH (08:18)
[2018-07-29] MEDS ORDERED: fentaNYL 100MCG/HR PATCH 1 PATCH PATCH TD SCH (09:00)
--- NOTE | 2018-07-29 09:16 | SNU/HH DC ---
DISCHARGE WITH HOME HEALTH DISCHARGE INFORMATION: Discharge Date: July 30, 2018 Final Diagnosis: Left total hip arthroplasty revision Condition on Discharge: Stable CODE STATUS: Code Status: Full HOME HEALTH: Face to Face: I certify this patient is under my care and that I, or a nurse practitioner or physician's finance assistant working with me, had a face to face encounter that meets the physician face to face encounter requirements with this patient on []. Medical Complications: S/P Joint Replacement Residential For: Admin/Educate Injections RN For Eval/Treatment: Yes Physical Therapy For: Evalulation/Treatment Occupational Therapy For: Evaluation/Treatment Pt Meets Homebound Status: Poor coordination w/ amb., Unsteady balance w/ amb, POST DISCHARGE ORDERS: Activity Instructions for Disc: Activity as tolerated, Other, see below Weight Bearing Status after Di: Full weight bearing, As tolerated Bathing Instructions: Shower-keep dressing dry, No Tub Bath until see Wound/Incision Care: Ice to area for comfort, Keep wound/cast CDI, Do not change dressing FOLLOW-UP: Follow up with: Carlos in 2 weeks Warfarin Follow UP: per pharmacy TREATMENT/EQUIPMENT ORDERS: Adaptive Equipment Issued: None CERTIFICATION STATEMENT: Certification Statement: Certification Statement: Based on the above finding, I certify that this patient is confined to the home and needs intermittent longterm care, physical therapy and/or speech therapy, or continues to need occupational therapy.~ This patient is under my care, and I have initiated the establishment of the plan of care.~ This patient will be followed by myself or a community physician who will periodically review the plan of care. Home Meds Reported Medications Meloxicam (MOBIC) 7.5 Mg Tablet, 1 TAB PO DAILY for pain, #30 TAB 1 Refill 07/20/18 Cholecalciferol (Vitamin D3) (VITAMIN D) 1,000 Unit Capsule, 1000 UNIT PO TID PRN for SUPP, CAP 05/11/18 Magnesium Oxide (MAGNESIUM) 400 Mg Capsule, 400 MG PO BID for SUPP, CAP 05/11/18 Hydroxyzine Pamoate (HYDROXYZINE PAMOATE) 25 Mg Capsule, 25 MG PO QID for SLEEP, CAP 05/11/18 Tizanidine Hcl (TIZANIDINE HCL) 4 Mg Tablet, 4 MG PO TID PRN for MUSCLE SPASMS, TAB 05/11/18 Fentanyl (FENTANYL 100mcg/hr) 1 Each Patch.td72, 1 PATCH TP Q3DAYS for PAIN, #10 PATCH 05/11/18 Hydroxychloroquine Sulfate (HYDROXYCHLOROQUINE SULFATE) 200 Mg Tablet, 200 MG PO DAILY for ARTHRITIS, TAB 05/11/18 Gabapentin (GABAPENTIN) 600 Mg Tablet, 600 MG PO BID for NEUROGENIC PAIN, TAB 05/11/18 Sertraline Hcl (ZOLOFT) 100 Mg Tablet, 100 MG PO DAILY for ANTI-DEPRESSANT, TAB 0 Refills 05/11/18 Oxycodone Hcl (OXYCODONE HCL IMMED.RELEASE) 10 Mg Tablet, 60 MG PO QID PRN for PAIN, TAB 0 Refills 05/29/15 Zolpidem Tartrate (AMBIEN) 5 Mg Tablet, 5 MG PO PRN QHS PRN for INSOMNIA, TAB 0 Refills May take as needed for insomnia. 01/13/15 Lisinopril/Hydrochlorothiazide (LISINOPRIL-HCTZ 20-12.5 MG TAB) 1 Each Tablet, 1 TAB PO DAILY for BLOOD PRESSURE LAST DOSE GIVEN: DATE: 06/08/2015 TIME: 9 am NEXT DOSE DUE: DATE: 06/09/2015 TIME: 9 am 01/13/15 CHAN KELSEY II, MD July 29, 2018 09:16
[2018-07-29 10:13] LABS: PROTHROMBIN TIME PATIENT 15.9 SEC (11.7-14.0)
[2018-07-29 10:21] LABS: HEMATOCRIT 25.3 % (36.0-47.0); HEMOGLOBIN 7.8 g/dL (12.0-15.5)
[2018-07-29] MEDS ORDERED: WARFARIN 5 MG TABLET. PO ONE (16:00)
[2018-07-29 17:53] VITALS: BP 113/62
[2018-07-30] MEDS: ACETAMINOPHEN 500 MG TABLET PO SCH ×2 (02:46→08:48)
[2018-07-30 05:24] LABS: HEMATOCRIT 25.4 % (36.0-47.0)
[2018-07-30 05:34] VITALS: BP 117/63
[2018-07-30 05:52] LABS: PROTHROMBIN TIME PATIENT 14.9 SEC (11.7-14.0)
[2018-07-30] MEDS: oxyCODONE IR 5 MG TABLET PO PRN ×2 (06:59→09:53)
[2018-07-30] MEDS: CHOLECALCIFEROL (VITAMIN D3) 1,000 UNIT TABLET PO SCH (08:43)
[2018-07-30] MEDS: MULTIVITAMIN with MINERAL TABLET. PO SCH (08:44)
[2018-07-30] MEDS: MAGNESIUM OXIDE 400 MG TABLET PO SCH (08:44)
[2018-07-30] MEDS: SERTRALINE 50 MG TABLET. PO SCH (08:44)
[2018-07-30] MEDS: GABAPENTIN 300 MG CAPSULE. PO SCH (08:44)
[2018-07-30] MEDS: hydrOXYzine PAMOATE 25 MG CAPSULE PO SCH (08:44)
[2018-07-30] MEDS: FERROUS SULFATE 325 MG TABLET. PO SCH (08:44)
[2018-07-30] MEDS: SENNOSIDES/DOCUSATE 8.6/50MG TABLET. PO SCH (08:48)
[2018-07-30] MEDS: LISINOPRIL 20 MG TABLET PO SCH (09:00)
[2018-07-30] MEDS: hydroCHLOROthiazide 12.5 MG CAPSULE PO SCH (09:00)
[2018-07-30] MEDS ORDERED: WARFARIN 7.5 MG TABLET. PO ONE (11:15)
[2018-07-30 11:19] VITALS: BP 113/63
[2018-07-30] MEDS ORDERED: WARF1TAB69 PO (11:40)
== END 2018-07-30 12:05 | disposition home health service (06) | DRG 468 ==
LOC: OPSVCIP 07:15 → 4 SOUTHEST 16:57
PROVIDERS: ADMIT Orthopaedic Surgery Sports Medicine; ATTEND Orthopaedic Surgery Sports Medicine
PROC: 0SP Lower Joints, Removal (ICD-10-PCS; 2018-07-27)
PROC: 0SRB06Z Replacement of Left Hip Joint with Oxidized Zirconium on Polyethylene Synthetic Substitute, Open Approach (ICD-10-PCS; principal; 2018-07-27 10:10)
DX: Z47.32 Aftercare following explantation of hip joint prosthesis (principal); I10 Essential (primary) hypertension; E55.9 Vitamin D deficiency, unspecified; Z96.641 Presence of right artificial hip joint
CPT/HCPCS: 36415; 73502; 76000; 81025; 85014; 85018; 85610; 85730; 86850; 86900; 86901; 87071; 87075; 87102; 87116; 88305; 88331; A7015; C1713; J0171; J0696; J0780; J1100; J1885; J2001; J2250; J2270; J2405; J2704; J2710; J2795; J3010; J3370; J3490; J7030; J7120; Q0177; 97110; 97116; 97530; 97535

== ENCOUNTER → 2018-09-01 | Day surgery (SDC) | payer OTHER ==
[~2018-09-01] MED LIST changes: -HYDROcodone/APAP 7.5/325MG 1 TAB TABLET PO PRN; -HYDROmorphone 2 MG/ML VIAL IV PRN; -IV RINGERS,LACTATED 1000ML 1,000 ML IV SCH; -LIDOCAINE 1% PF 2 ML VIAL. ID PRN; -MELOXICAM 7.5 MG TABLET PO PRN; -MORPHINE SULFATE 5 MG, KETOROLAC 30MG VIAL 30 MG, ROPIVacaine 0.5% PF 60 ML, EPINEPHrin... INT ART ONE; -ONDANSETRON PF 4 MG/2 ML VIAL. IV PRN; -PROCHLORPERAZINE 10 MG/2 ML VIAL. IV PRN; -TRANEXAMIC ACID 1,000 MG in IV NS 50ML -- 1ST BAG INJ ONE; -VANCOMYCIN 1GM IVPB FOR OMNI 250 ML IV PRN; +WARF1TAB69 PO; -fentaNYL PF VIAL 100 MCG/2 ML VIAL IV PRN
--- NOTE | 2018-09-01 08:30 | NUR ---
Patient was unaware that today was surgery. She thought it was an office visit or local so she had breakfast @ 0800. Surgery will need to be postponed until at least 1400. Patient was not prepared for surgery and does not want to wait until 1400. Patient to call the office to reschedule. Notified Dr Estrdaa of the above. Patient discharged ambulatory with cane and .
--- NOTE | 2018-09-02 14:51 | CONS ---
DATE OF CONSULTATION: 09/01/2018 HISTORY OF PRESENT ILLNESS: The patient is a female patient of Dr. Gonzalez'jack who had undergone a total hip revision for infection approximately 6 weeks ago. I had received a call yesterday from Mr. Frederick at [facility]. He works with Dr. Elizabeth in the primary care clinic who had apparently seen the patient on Friday, the day I received the call. Apparently, she was having some drainage occurring over the past few days of the superior portion of her hip incision. She indicates that this has been a small amount of drainage, however. There has been a little bit of redness and hardness to the area as well preceding this and she has been on about 2 days of clindamycin I believe she said as far as antibiotic and it is unclear whether there is really any resolution as of yet. When I had heard that a patient with this history, had some drainage and a concern for the wound, particularly given that Dr. Gonzalez was unavailable, out of town, I arranged immediately for the patient to be called back to come in with nothing to eat or drink, so she could be examined particularly because both other surgeons, Dr. Brody and myself that were available were scheduled to be in the operating room all day today. I therefore left instructions for her to come in nothing to eat or drink and there may be a possibility that we have to even take her in the surgery depending on the appearance, perhaps take cultures and perhaps even aspirate her hip under x-ray if there is some concern of the hip joint itself being involved. Unfortunately, despite receiving a call from Mr. Frederick with these instructions, the patient somehow says she misunderstood and came in having eaten breakfast. I was in surgery when she first came in. The anesthesiologist evaluated her and said if she needed surgery that this would have delayed it for a period of about 6 hours and she then elected to leave without being seen at all by myself, but which was the stated plan. Given that I was unable to evaluate her as desired, I gave her a call back after my surgeries were completed and did discuss the plan with her. She indicated that she was not told that she might have any type of surgical procedure or that it might be done under sedation and denied being told to come in with nothing to eat or drink and furthermore, I did describe to her my concern with what was relayed to me through the [facility] personnel that essentially she had a hip revision for infection 6 weeks ago where it was reimplanted and potentially was now having some drainage that could be a very significant risk for infection. I further did not understand the difficulty in communication, but clearly laid the plan out for her and the necessity as I saw it of having an evaluation because of the possibility of infection. She felt that she was being yelled at for having left. She said that she had an autistic son and no early childhood worker. I told her I certainly understand that. However, the clear intention was to assess her and see if anything else needed to be done, not necessarily have her wait there for 6 hours, but for me to come in as soon as available after my first case and evaluate what needs to be done and facilitate her diagnosis. I told her furthermore that this phone call is not at all to criticize or yell at her, but instead to evaluate what is going on and attempt to provide her the most timely proper care as possible having lost one opportunity to do that despite my meticulous planning and clearly leaving different options open depending on the extent of involvement, I wanted to see if she is available to be seen and offered a clinic visit as soon as possible ideally tomorrow. She declined this and she instead expressed that she would be going in to see Dr. Elizabeth tomorrow for some blood work and preferred to follow up with Dr. Gonzalez in [place] on Friday. I once again told her that this is my strong recommendation and preference based on my concern and medical knowledge of what has been reported to me that she needs more prompt evaluation. However, it is my role to offer and recommend the services. It is certainly her prerogative even though it is strongly against my advice to decline that advice. Nevertheless, certainly if that is her decision that I called back to Mr. Frederick and he will get in touch with Dr. Elizabeth to ensure that the wound gets looked at and that if there are other concerns that she again have a chance to be promptly evaluated. I did emphasize, however, that there are certainly constraints in this process in terms of our availability. I told her that despite me not being extrusion die repairer at all given the Dr. Gonzalez's on vacation that I wanted to make as available to her as possible way to get evaluated. However, certainly constraints in clinic and operating room availability do affect this process as well. Therefore, I wanted to get that in process as soon as possible to give her the most prompt accurate evaluation. She stated that she understood this and still elected to proceed with her original plan, which was to follow up with Dr. Elizabeth and Dr. Gonzalez as scheduled. I emphasized that this is strongly not my recommendation, but in any case if her condition changes that we certainly need prompt notice of it to attempt revising her treatment plan. JEANNETTE BRITTON MD DR: ROMARIO/everton JOB#: [id number] / [id number] CHAN Lancaster MD, Jackie DO
== END ==
LOC: SURG 08:07
PROVIDERS: ATTEND Orthopaedic Surgery
DX: Z53.09 Procedure and treatment not carried out because of other contraindication (principal)